=== PATIENT | male | born 1980 | race Hispanic/Latino ===

== ENCOUNTER 2018-10-04 06:32 | Emergency (ER) | payer SELFPAY ==
--- NOTE | 2018-10-04 08:02 | ER ---
Nurse's Notes [facility] Name: Sergei Walden Age: 38 yrs Sex: Male : 1980 Arrival Date: 10/04/2018 Time: 06:38 Bed 15 Private MD: Diagnosis: Acute upper respiratory infection, unspecified;Bronchitis, not specified as acute or chronic;Pneumonia due to other specified bacteria-left retrocardiac Presentation: 10/04 06:47 Presenting complaint: Patient states: I have had cough, fever and a soar throat since jb4 Thursday. My ears have also been hurting and I have had body aches chills and a runny nose on top of it. Transition of care: patient was not received from another setting of care. Onset of symptoms was October 01, 2018. Risk Assessment: Do you want to hurt yourself or someone else? Patient reports no desire to harm self or others. Initial Sepsis Screen: Does the patient meet any 2 criteria? No. Patient's initial sepsis screen is negative. Does the patient have a suspected source of infection? No. Patient's initial sepsis screen is negative. Care prior to arrival: None. 06:47 Method Of Arrival: Ambulatory jb4 06:47 Acuity: ARGENIS 4 jb4 Triage Assessment: 06:51 General: Appears in no apparent distress. uncomfortable, Behavior is calm, cooperative, jb4 appropriate for age. Pain: Complains of pain in right ear Pain does not radiate. Pain currently is 5 out of 10 on a pain scale. EENT: Nares are clear bilaterally Throat is reddened. Neuro: Level of Consciousness is awake, alert, obeys commands, Oriented to person, place, time, Appropriate for age. Cardiovascular: Heart tones S1 S2 present Patient's skin is warm and dry. Respiratory: Reports cough that is productive, Airway is patent Respiratory effort is even, unlabored, Respiratory pattern is regular, symmetrical, Breath sounds are clear in right upper lobe, left upper lobe, right middle lobe, left lower lobe, right lower lobe, left posterior upper lobe, right posterior upper lobe and right posterior middle lobe Breath sounds with rales in left posterior lower lobe and right posterior lower lobe. GI: Abdomen is round non-distended, Bowel sounds present X 4 quads. Reports lower abdominal pain. : No signs and/or symptoms were reported regarding the genitourinary system. Derm: Skin is intact, Skin is pink, warm \T\ dry. Musculoskeletal: Circulation, motion, and sensation intact. Historical: - Allergies: 06:51 No Known Allergies; jb4 - PMHx: 06:51 None; jb4 - PSHx: 06:51 Knee surgery; jb4 - Immunization history:: Adult Immunizations up to date, Flu vaccine is not up to date. - Social history:: Smoking status: Patient/guardian denies using tobacco, Patient/guardian denies using alcohol. - Ebola Screening: : No symptoms or risks identified at this time. Screenin:57 Abuse screen: Denies threats or abuse. Nutritional screening: No deficits noted. jb4 Tuberculosis screening: No symptoms or risk factors identified. Fall Risk None identified. Assessment: 06:57 General: see triage assessment.. Cardiovascular: Heart tones S1 S2 present Patient's jb4 skin is warm and dry. Respiratory: Airway is patent Respiratory effort is even, unlabored, Respiratory pattern is regular, symmetrical, Breath sounds are clear in right upper lobe, left upper lobe, right middle lobe, left lower lobe, right lower lobe, left posterior upper lobe, right posterior upper lobe and right posterior middle lobe Breath sounds with rales in left posterior lower lobe and right posterior lower lobe. 07:09 Reassessment: Patient and/or family updated on plan of care and expected duration. Pain hj level reassessed. Patient is alert, oriented x 3, equal unlabored respirations, skin warm/dry/pink. awaiting results and POC:. 08:09 Reassessment: wheeled to XRAY;. hj 08:32 Reassessment: still on breathing tx and awaiting XRAY result;. hj Vital Signs: 06:51 BP 139 / 88; Pulse 96; Resp 18; Temp 98.3(O); Pulse Ox 96% on R/A; Weight 79.38 kg (R); jb4 Height 5 ft. 2 in. (157.48 cm) (R); Pain 5/10; 07:10 BP 107 / 95; Pulse 88; Resp 18; Pulse Ox 95% on R/A; hj 08:34 BP 126 / 86; Pulse 98; Resp 18; Pulse Ox 100% on R/A; hj 09:02 BP 125 / 85; Pulse 97; Resp 18; Pulse Ox 100% on R/A; hj 06:51 Body Mass Index 32.01 (79.38 kg, 157.48 cm) jb4 ED Course: 06:38 Patient arrived in ED. keon 06:44 Timoteo Sorenson MD is Attending Physician. luh 06:47 John Munoz, RN is Primary Nurse. jb4 06:49 Triage completed. jb4 06:51 Arm band placed on left wrist. jb4 06:57 Patient has correct armband on for positive identification. Bed in low position. Call jb4 light in reach. Side rails up X 1. Pulse ox on. NIBP on. 08:14 X-ray completed. Patient tolerated procedure well. Patient moved back from radiology. jb2 08:15 Chest Pa And Lat (2 Views) XRAY In Process Unspecified. EDMS 09:01 No provider procedures requiring assistance completed. Patient did not have IV access hj during this emergency room visit. Administered Medications: 07:57 Drug: predniSONE 40 mg Route: PO; hj 08:16 Follow up: Response: No adverse reaction hj 07:57 Drug: Zithromax 500 mg Route: PO; hj 08:15 Follow up: Response: No adverse reaction hj 07:58 Drug: Albuterol - atroVENT (3:1) (2.5 mg - 0.5 mg) 3 ml Route: Nebulizer; hj 08:16 Follow up: Response: Wheezing diminished hj 08:09 Drug: Rocephin (cefTRIAXone) 1 grams Route: IM; Site: right deltoid; hj 08:16 Follow up: Response: No adverse reaction hj Outcome: 08:01 Discharge ordered by . luh 09:01 Discharged to home ambulatory. 09:01 Condition: stable 09:01 Discharge instructions given to patient, Instructed on discharge instructions, follow up and referral plans. medication usage, Demonstrated understanding of instructions, follow-up care, medications, Prescriptions given X 3. 09:02 Patient left the ED. Signatures: Dispatcher [employer] EDAZ Timoteo Sorenson MD MD cha Salyer, Edna es Buechter, Jesse jb2 Elliott Madsen, RN RN John Rosario, RN RN jb4
--- NOTE | 2018-10-04 08:02 | EDPHYS ---
Physician Documentation [facility] Name: Sergei Walden Age: 38 yrs Sex: Male : 1980 Arrival Date: 10/04/2018 Time: 06:38 Bed 15 Private MD: ED Physician Timoteo Sorenson HPI: 10/04 07:56 This 38 yrs old Male presents to ER via Ambulatory with complaints of Fever, luh Congestion, Ear Pain. 07:56 The patient reports fever, that was measured at 100 degrees Fahrenheit. Onset: The luh symptoms/episode began/occurred 2 day(s) ago. Modifying factors: there are no obvious modifying factors. Associated signs and symptoms: Pertinent positives: abdominal pain. Severity of symptoms: At their worst the symptoms were. The patient has not experienced similar symptoms in the past. Historical: - Allergies: 06:51 No Known Allergies; jb4 - PMHx: 06:51 None; jb4 - PSHx: 06:51 Knee surgery; jb4 - Immunization history:: Adult Immunizations up to date, Flu vaccine is not up to date. - Social history:: Smoking status: Patient/guardian denies using tobacco, Patient/guardian denies using alcohol. - Ebola Screening: : No symptoms or risks identified at this time. ROS: 07:56 Constitutional: Negative for fever, chills, and weight loss, Eyes: Negative for injury, luh pain, redness, and discharge, ENT: Negative for injury, pain, and discharge, Neck: Negative for injury, pain, and swelling, Cardiovascular: Negative for chest pain, palpitations, and edema, Abdomen/GI: Negative for abdominal pain, nausea, vomiting, diarrhea, and constipation, Back: Negative for injury and pain, : Negative for injury, bleeding, discharge, and swelling, MS/Extremity: Negative for injury and deformity, Skin: Negative for injury, rash, and discoloration, Neuro: Negative for headache, weakness, numbness, tingling, and seizure, Psych: Negative for depression, anxiety, suicide ideation, homicidal ideation, and hallucinations, Allergy/Immunology: Negative for hives, rash, and allergies, Endocrine: Negative for neck swelling, polydipsia, polyuria, polyphagia, and marked weight changes, Hematologic/Lymphatic: Negative for swollen nodes, abnormal bleeding, and unusual bruising. 07:56 Respiratory: Positive for cough, shortness of breath, at rest. wheezing, expiratory. Exam: 07:56 Constitutional: This is a well developed, well nourished patient who is awake, alert, luh and in no acute distress. Head/Face: Normocephalic, atraumatic. Eyes: Pupils equal round and reactive to light, extra-ocular motions intact. Lids and lashes normal. Conjunctiva and sclera are non-icteric and not injected. Cornea within normal limits. Periorbital areas with no swelling, redness, or edema. ENT: Nares patent. No nasal discharge, no septal abnormalities noted. Tympanic membranes are normal and external auditory canals are clear. Oropharynx with no redness, swelling, or masses, exudates, or evidence of obstruction, uvula midline. Mucous membranes moist. Neck: Trachea midline, no thyromegaly or masses palpated, and no cervical lymphadenopathy. Supple, full range of motion without nuchal rigidity, or vertebral point tenderness. No Meningismus. Chest/axilla: Normal chest wall appearance and motion. Nontender with no deformity. No lesions are appreciated. Cardiovascular: Regular rate and rhythm with a normal S1 and S2. No gallops, murmurs, or rubs. Normal PMI, no JVD. No pulse deficits. Abdomen/GI: Soft, non-tender, with normal bowel sounds. No distension or tympany. No guarding or rebound. No evidence of tenderness throughout. Back: No spinal tenderness. No costovertebral tenderness. Full range of motion. Male : Normal genitalia with no discharge or lesions. Skin: Warm, dry with normal turgor. Normal color with no rashes, no lesions, and no evidence of cellulitis. MS/ Extremity: Pulses equal, no cyanosis. Neurovascular intact. Full, normal range of motion. Neuro: Awake and alert, GCS 15, oriented to person, place, time, and situation. Cranial nerves II-XII grossly intact. Motor strength 5/5 in all extremities. Sensory grossly intact. Cerebellar exam normal. Normal gait. Psych: Awake, alert, with orientation to person, place and time. Behavior, mood, and affect are within normal limits. 07:56 Respiratory: Respirations: normal, Breath sounds: decreased breath sounds, rhonchi, wheezing: expiratory Vital Signs: 06:51 BP 139 / 88; Pulse 96; Resp 18; Temp 98.3(O); Pulse Ox 96% on R/A; Weight 79.38 kg (R); jb4 Height 5 ft. 2 in. (157.48 cm) (R); Pain 5/10; 07:10 BP 107 / 95; Pulse 88; Resp 18; Pulse Ox 95% on R/A; hj 08:34 BP 126 / 86; Pulse 98; Resp 18; Pulse Ox 100% on R/A; hj 09:02 BP 125 / 85; Pulse 97; Resp 18; Pulse Ox 100% on R/A; hj 06:51 Body Mass Index 32.01 (79.38 kg, 157.48 cm) jb4 MDM: 06:44 Patient medically screened. [facility] 08:00 Data reviewed: vital signs, nurses notes, lab test result(s), radiologic studies, plain luh films. 10/04 07:00 Order name: Flu; Complete Time: 08:51 [facility] 10/04 07:00 Order name: Strep; Complete Time: 08:51 [facility] 10/04 07:33 Order name: Throat Culture EDME 10/04 07:56 Order name: Chest Pa And Lat (2 Views) XRAY; Complete Time: 08:[address] [facility] Administered Medications: 07:57 Drug: predniSONE 40 mg Route: PO; hj 08:16 Follow up: Response: No adverse reaction hj 07:57 Drug: Zithromax 500 mg Route: PO; hj 08:15 Follow up: Response: No adverse reaction hj 07:58 Drug: Albuterol - atroVENT (3:1) (2.5 mg - 0.5 mg) 3 ml Route: Nebulizer; hj 08:16 Follow up: Response: Wheezing diminished hj 08:09 Drug: Rocephin (cefTRIAXone) 1 grams Route: IM; Site: right deltoid; hj 08:16 Follow up: Response: No adverse reaction Disposition: 10/04/18 08:01 Discharged to Home. Impression: Acute upper respiratory infection, unspecified, Bronchitis, not specified as acute or chronic, Pneumonia due to other specified bacteria - left retrocardiac. - Condition is Stable. - Discharge Instructions: Acute Bronchitis, Adult, Community-Acquired Pneumonia, Adult, Upper Respiratory Infection, Adult, Cool Mist Vaporizer, Acute Bronchitis, Clnk-[id number], Upper Respiratory Infection, Adult, Lcjy-wd-[id number], Cough, Adult, Kxvf-up-Kptt, Cough, Adult. - Prescriptions for Medrol (Dakota) 4 mg Oral Tablets, Dose Pack - take 1 tablet by ORAL route as directed - follow package instructions; 1 packet. Albuterol Sulfate 90 mcg/actuation - inhale 1-2 puff by INHALATION route every 4-6 hours; 1 Inhaler. Zithromax 500 mg Oral Tablet - take 1 tablet by ORAL route once daily for 5 days; 5 tablet. - Medication Reconciliation Form, Thank You Letter, Antibiotic Education, Prescription Opioid Use form. - Work release form (10/04/18 09:11). bd - Follow up: Private Physician; When: 2 - 3 days; Reason: Recheck today's complaints, Continuance of care, Re-evaluation by your physician. - Problem is new. - Symptoms have improved. Signatures: Dispatcher [employer] EDTimoteo Nunez MD MD cha Joaquin, Henry, RN RN hj Bryson, James, RN RN jbAmber Benitez Corrections: (The following items were deleted from the chart) 08:52 08:01 10/04/2018 08:01 Discharged to Home. Impression: Acute upper respiratory lhu infection, unspecified; Bronchitis, not specified as acute or chronic. Condition is Stable. Forms are Medication Reconciliation Form, Thank You Letter, Antibiotic Education, Prescription Opioid Use. Follow up: Private Physician; When: 2 - 3 days; Reason: Recheck today's complaints, Continuance of care, Re-evaluation by your physician. Problem is new. Symptoms have improved. [facility] 09:02 08:52 10/04/2018 08:01 Discharged to Home. Impression: Acute upper respiratory hj infection, unspecified; Bronchitis, not specified as acute or chronic; Pneumonia due to other specified bacteria - left retrocardiac. Condition is Stable. Discharge Instructions: Acute Bronchitis, Adult, Upper Respiratory Infection, Adult, Cool Mist Vaporizer, Acute Bronchitis, [id number], Upper Respiratory Infection, Adult, Xbiw-sm-Eayq, Cough, Adult, Hdmi-yv-Menm, Cough, Adult. Prescriptions for Medrol (Dakota) 4 mg Oral Tablets, Dose Pack - take 1 tablet by ORAL route as directed - follow package instructions; 1 packet, Albuterol Sulfate 90 mcg/actuation - inhale 1-2 puff by INHALATION route every 4-6 hours; 1 Inhaler, Zithromax 500 mg Oral Tablet - take 1 tablet by ORAL route once daily for 5 days; 5 tablet. and Forms are Medication Reconciliation Form, Thank You Letter, Antibiotic Education, Prescription Opioid Use. Follow up: Private Physician; When: 2 - 3 days; Reason: Recheck today's complaints, Continuance of care, Re-evaluation by your physician. Problem is new. Symptoms have improved. luh
[2018-10-04] MEDS ORDERED: AZITHROMYCIN 250 MG TAB ONE (08:08)
[2018-10-04] MEDS ORDERED: LIDOCAINE 2% MPF 5 ML VIAL ONE (08:08)
[2018-10-04] MEDS ORDERED: ALBUTEROL 2.5 MG/3 ML NEB SOL ONE (08:09)
[2018-10-04] MEDS ORDERED: predniSONE 20 MG TAB ONE (08:09)
[2018-10-04] MEDS ORDERED: CEFTRIAXONE 1000 MG/VIAL ONE (08:09)
[2018-10-04] MEDS ORDERED: IPRATROPIUM BROM 0.5MG/2.5ML ONE (08:09)
--- NOTE | 2018-10-04 08:47 | RAD REPORT ---
EXAM DESCRIPTION: RAD - Chest Pa And Lat (2 Views) - 10/04/2018 8:16 am CLINICAL HISTORY: COUGH Chest pain. COMPARISON: No comparisons FINDINGS: Increased left retrocardiac lung opacity is present, suspicious for developing pneumonia. The lungs are otherwise clear. The heart is normal in size. No displaced fractures. IMPRESSION: Left retrocardiac pneumonia.
== END 2018-10-04 09:02 | disposition home or self-care (01) ==
LOC: ER 06:32
DX: J06.9 Acute upper respiratory infection, unspecified (principal); J40 Bronchitis, not specified as acute or chronic; J15.8 Pneumonia due to other specified bacteria
CPT/HCPCS: 71046; 87070; 87081; 87804; 94640; 96372; 99284; J7512

== ENCOUNTER 2018-10-11 14:46 | Emergency (ER) | payer SELFPAY ==
[2018-10-11] MEDS ORDERED: MECLIZINE HCL 12.5 MG TAB ONE (15:07)
[2018-10-11] MEDS ORDERED: NA CHLORIDE 0.9% 0 ML ONE (15:08)
[2018-10-11] MEDS ORDERED: NA CHLORIDE 0.9% 1,000 ML ONE ×2 (15:09)
--- NOTE | 2018-10-11 15:14 | RAD REPORT ---
EXAM DESCRIPTION: CT - Head Brain Wo Cont - 10/11/2018 3:03 pm CLINICAL HISTORY: Weakness, dizziness, syncope COMPARISON: None. TECHNIQUE: Axial 5 mm thick images of the head were obtained without IV contrast. All CT scans are performed using dose optimization technique as appropriate and may include automated exposure control or mA/KV adjustment according to patient size. FINDINGS: No intracranial hemorrhage, mass, edema or shift of mid-line structures. No acute infarcti on changes seen. No abnormal extra-axial fluid collections. Ventricles are normal. Mastoid air cells and visualized portions of the paranasal sinuses are clear. No acute bony findings. IMPRESSION: Negative non-contrast CT head examination.
--- NOTE | 2018-10-11 15:37 | RAD REPORT ---
EXAM DESCRIPTION: RAD - Chest Single View - 10/11/2018 3:14 pm CLINICAL HISTORY: Cough, weakness, dizziness COMPARISON: October 04 TECHNIQUE: AP portable chest image was obtained 1500 hours . FINDINGS: Lung volumes are low accentuating lung markings. Retrocardiac left base opacification is s till present. Peribronchial thickening is seen. Heart and vasculature are normal. No measurable pleur al effusion and no pneumothorax. No acute bony abnormality seen. No acute aortic findings suspected. IMPRESSION: Perihilar markings are increased in prominence typically seen with viral infiltrate. Retrocardiac left base opacification, suspicious for pneumonia, is still present.
[2018-10-11 15:42] LABS: Absolute Lymphocytes (CBC) 2.2 K/uL (0.7-4.9); Absolute Monocytes 0.9 K/uL (0.1-1.3); Absolute Neutrophil 5.9 K/uL (1.8-8.0); Basophils % 1.5 % (0-1.3); Eosinophils % 2.6 % (0-4.4); Hematocrit 43.4 % (39.6-49.0); Lymphocytes % 23.8 % (15.3-44.8); MCH 29.2 pg (27.0-35.0); MCV 85.5 fL (80-100); MPV 7.2 fL (7.6-11.3); Monocytes % 9.2 % (3.3-12.3); RBC Red Blood Cell Count 5.07 M/uL (4.33-5.43)
[2018-10-11 15:44] LABS: Protime INR 1.08
--- NOTE | 2018-10-11 16:03 | EKG ---
Test Date: 2018-10-11 Test Time: 15:18:57 Lumber Scaler: MIRIAM MEASUREMENT RESULTS: Intervals: Rate: 76 IA: 200 QRSD: 106 QT: 370 QTc: 416 Saxon: P: 55 IA: 200 QRS: 74 T: 21 INTERPRETIVE STATEMENTS: Normal sinus rhythm Nonspecific ST and T wave abnormality Abnormal ECG No previous ECG available for comparison Electronically Signed On 10-11-18 16:02:25 FILM AND VIDEO GRAPHICS DESIGNER by Tahir Buckner
[2018-10-11 16:10] LABS: ALT/SGPT 44 U/L (12-78); AST/SGOT 14 U/L (15-37); Albumin 3.3 g/dL (3.4-5.0); Alkaline Phosphatase 59 U/L (45-117); BUN Blood Urea Nitrogen 15 mg/dL (7-18); Bicarbonate 26 mmol/L (21-32); Bilirubin Direct < 0.1 mg/dL (0-0.2); Bilirubin Total 0.3 mg/dL (0.2-1.0); Glucose Level 91 mg/dL (74-106); Magnesium 2.2 mg/dL (1.8-2.4); Potassium 3.4 mmol/L (3.5-5.1); Protein, Total 6.9 g/dL (6.4-8.2); Sodium Level 140 mmol/L (136-145); Troponin (Emerg Dept Use Only) < 0.02 ng/mL (0.0-0.045)
[2018-10-11 16:11] LABS: NT PRO-BNP < 5 pg/mL (<125)
[2018-10-11 16:30] LABS: Urine Blood NEGATIVE (NEG); Urine Glucose NEGATIVE (NEG); Urine Protein NEGATIVE (NEG); Urine pH 7.5 (5.0-7.0)
--- NOTE | 2018-10-11 16:50 | RAD REPORT ---
EXAM DESCRIPTION: CT - Thorax W/ Con - 10/11/2018 4:37 pm CLINICAL HISTORY: Chest pain COMPARISON: Chest exam same date TECHNIQUE: Dynamically enhanced 5 mm thick images of the chest were obtained during administration o f 100 mL non-ionic IV contrast. All CT scans are performed using dose optimization technique as appropriate and may include automated exposure control or mA/KV adjustment according to patient size. FINDINGS: Lung parenchyma is better imaged on this study compared to the recent chest imaging. There is no focal infiltrate or consolidation. Peribronchial structures are mildly prominent and a viral i nfiltrative process is still possible. There is no endobronchial lesion. No pleural thickening or pleural effusion. No pneumothorax. No chest wall mass or abnormal axillary lymphadenopathy. No abnormal mediastinal or hilar mass or lymphadenopathy seen. No rib lesion or acute bone findings seen. Limited upper abdomen imaging shows fatty infiltration of the liver. IMPRESSION: Minimal bronchial wall thickening is evident. Viral infiltrate is still possible. There is no focal lung parenchymal process to indicate bacterial pneumonia. Fatty infiltration of the liver.
--- NOTE | 2018-10-11 16:58 | EDPHYS ---
Physician Documentation [facility] Name: Sergei Walden Age: 38 yrs Sex: Male : 1980 Arrival Date: 10/11/2018 Time: 14:47 Bed 14 Private MD: ED Physician Timoteo Sorenson HPI: 10/11 15:29 This 38 yrs old Male presents to ER via EMS with complaints of Nausea, luh Dizziness. 15:29 The patient presents to the emergency department with nausea, that is mild. Onset: The luh symptoms/episode began/occurred just prior to arrival. Possible causes: unknown. The symptoms are aggravated by movement. Associated signs and symptoms: The patient has no apparent associated signs or symptoms. Severity of symptoms: At their worst the symptoms were mild in the emergency department the symptoms are unchanged. The patient has not experienced similar symptoms in the past. Historical: - Allergies: 17:55 No Known Allergies; tw2 - Home Meds: 17:55 None [Active]; tw2 - PSHx: 17:55 Knee surgery; tw2 - Immunization history:: Adult Immunizations. - Family history:: not pertinent. - Social history:: Smoking status: . - Ebola Screening: : Patient denies travel to an Ebola-affected area in the 21 days before illness onset. ROS: 15:29 Constitutional: Negative for fever, chills, and weight loss, Eyes: Negative for injury, luh pain, redness, and discharge, ENT: Negative for injury, pain, and discharge, Neck: Negative for injury, pain, and swelling, Cardiovascular: Negative for chest pain, palpitations, and edema, Respiratory: Negative for shortness of breath, cough, wheezing, and pleuritic chest pain, Back: Negative for injury and pain, : Negative for injury, bleeding, discharge, and swelling, MS/Extremity: Negative for injury and deformity, Skin: Negative for injury, rash, and discoloration, Psych: Negative for depression, anxiety, suicide ideation, homicidal ideation, and hallucinations, Allergy/Immunology: Negative for hives, rash, and allergies, Endocrine: Negative for neck swelling, polydipsia, polyuria, polyphagia, and marked weight changes, Hematologic/Lymphatic: Negative for swollen nodes, abnormal bleeding, and unusual bruising. 15:29 Abdomen/GI: Positive for abdominal pain, nausea. Exam: 15:29 Constitutional: This is a well developed, well nourished patient who is awake, alert, luh and in no acute distress. Head/Face: Normocephalic, atraumatic. Eyes: Pupils equal round and reactive to light, extra-ocular motions intact. Lids and lashes normal. Conjunctiva and sclera are non-icteric and not injected. Cornea within normal limits. Periorbital areas with no swelling, redness, or edema. ENT: Nares patent. No nasal discharge, no septal abnormalities noted. Tympanic membranes are normal and external auditory canals are clear. Oropharynx with no redness, swelling, or masses, exudates, or evidence of obstruction, uvula midline. Mucous membranes moist. Neck: Trachea midline, no thyromegaly or masses palpated, and no cervical lymphadenopathy. Supple, full range of motion without nuchal rigidity, or vertebral point tenderness. No Meningismus. Chest/axilla: Normal chest wall appearance and motion. Nontender with no deformity. No lesions are appreciated. Cardiovascular: Regular rate and rhythm with a normal S1 and S2. No gallops, murmurs, or rubs. Normal PMI, no JVD. No pulse deficits. Respiratory: Lungs have equal breath sounds bilaterally, clear to auscultation and percussion. No rales, rhonchi or wheezes noted. No increased work of breathing, no retractions or nasal flaring. Abdomen/GI: Soft, non-tender, with normal bowel sounds. No distension or tympany. No guarding or rebound. No evidence of tenderness throughout. Back: No spinal tenderness. No costovertebral tenderness. Full range of motion. Male : Normal genitalia with no discharge or lesions. Skin: Warm, dry with normal turgor. Normal color with no rashes, no lesions, and no evidence of cellulitis. MS/ Extremity: Pulses equal, no cyanosis. Neurovascular intact. Full, normal range of motion. Neuro: Awake and alert, GCS 15, oriented to person, place, time, and situation. Cranial nerves II-XII grossly intact. Motor strength 5/5 in all extremities. Sensory grossly intact. Cerebellar exam normal. Normal gait. Psych: Awake, alert, with orientation to person, place and time. Behavior, mood, and affect are within normal limits. Vital Signs: 14:51 BP 119 / 88; Pulse 78; Resp 18; Temp 97.8(TE); Pulse Ox 100% on R/A; Pain 3/10; tw2 15:30 BP 122 / 75; Pulse 70; Resp 17; Pulse Ox 97% on R/A; tw2 16:00 BP 134 / 97; Pulse 72; Resp 17; Pulse Ox 97% on R/A; tw2 17:25 BP 126 / 88; Pulse 72; Resp 17; Pulse Ox 97% on R/A; tw2 18:39 BP 115 / 52; Pulse 64; Resp 17; Pulse Ox 95% on R/A; tw2 MDM: 14:50 Patient medically screened. [facility] 15:33 Data reviewed: vital signs, nurses notes, lab test result(s), EKG, radiologic studies, [facility] CT scan, plain films. 10/11 14:51 Order name: Basic Metabolic Panel; Complete Time: 16:41 [facility] 10/11 14:51 Order name: CBC with Diff; Complete Time: 16:05 [facility] 10/11 14:51 Order name: LFT's; Complete Time: 16:41 [facility] 10/11 14:51 Order name: Magnesium; Complete Time: 16:41 [facility] 10/11 14:51 Order name: NT PRO-BNP; Complete Time: 16:41 [facility] 10/11 14:51 Order name: PT-INR; Complete Time: 16:05 [facility] 10/11 14:51 Order name: Troponin (emerg Dept Use Only); Complete Time: 16:41 [facility] 10/11 14:51 Order name: XRAY Chest (1 view); Complete Time: 16:05 [facility] 10/11 14:51 Order name: CT Head Brain wo Cont; Complete Time: 16:05 [facility] 10/11 14:51 Order name: Urine Culture [facility] 10/11 16:06 Order name: Blood Culture Adult (2) [facility] 10/11 16:06 Order name: CT Chest W/ Con; Complete Time: 16:56 [facility] 10/11 16:18 Order name: Urine Dipstick--Ancillary (enter results); Complete Time: 16:41 10/11 16:41 Order name: Influenza Screen (a \T\ B) [facility] 10/11 14:51 Order name: EKG; Complete Time: 14:52 [facility] 10/11 14:51 Order name: Cardiac monitoring; Complete Time: 14:55 [facility] 10/11 14:51 Order name: EKG - Nurse/Tech; Complete Time: 15:44 [facility] 10/11 14:51 Order name: IV Saline Lock; Complete Time: 14:55 [facility] 10/11 14:51 Order name: Labs collected and sent; Complete Time: 14:55 [facility] 10/11 14:51 Order name: O2 Per Protocol; Complete Time: 14:56 [facility] 10/11 14:51 Order name: O2 Sat Monitoring; Complete Time: 14:56 [facility] 10/11 14:51 Order name: Urine Dipstick-Ancillary (obtain specimen); Complete Time: 17:50 [facility] 10/11 17:11 Order name: INCENTIVE SPIROMETRY dm5 Administered Medications: 14:53 Not Given (ems just medicated): Zofran 4 mg IVP once; over 2 minutes tw2 15:30 Drug: NS 0.9% 1000 ml Route: IV; Rate: 1 bolus; Site: right antecubital; tw2 17:11 Follow up: Response: No adverse reaction; IV Status: Completed infusion; IV Intake: dm5 1000ml 15:30 Drug: Meclizine 50 mg Route: PO; tw2 15:44 Follow up: Response: No adverse reaction tw2 17:10 Drug: levofloxacin 750 mg Volume: 150 ml; Route: IVPB; Infused Over: 90 mins; Site: dm5 right hand; 18:38 Follow up: Response: No adverse reaction; IV Status: Completed infusion tw2 17:10 Drug: Potassium Effervescent Tablet 25 mEq Route: PO; dm5 17:11 Follow up: Response: No adverse reaction dm5 Disposition: 10/11/18 16:57 Discharged to Home. Impression: Dizziness and giddiness, Pneumonia due to other specified bacteria, Hypokalemia. - Condition is Stable. - Discharge Instructions: Potassium Content of Foods, Dizziness, Community-Acquired Pneumonia, Adult, Vertigo, Community-Acquired Pneumonia, Adult, Nwlq-[id number], Vertigo, Mtky-ac-Ggub, Aspirin and Your Heart, Hypokalemia, Dizziness, Gitw-bd-Bsvt. - Prescriptions for Meclizine 25 mg Oral Tablet - take 1 tablet by ORAL route every 8 hours As needed; 30 tablet. Levaquin 750 mg Oral Tablet - take 1 tablet by ORAL route once daily for 7 days; 7 tablet. - Medication Reconciliation Form, Thank You Letter, Antibiotic Education, Prescription Opioid Use, Work release form form. - Follow up: Private Physician; When: 2 - 3 days; Reason: Recheck today's complaints, Continuance of care, Re-evaluation by your physician. - Problem is new. - Symptoms have improved. Signatures: Dispatcher [employer] [facility] Zena Melchor, RN RN dm5 Timoteo Sorenson MD MD cha Wise, Tara RN RN tw2 Corrections: (The following items were deleted from the chart) 16:59 16:57 [id number] ordered. [facility] 18:40 16:57 10/11/2018 16:57 Discharged to Home. Impression: Dizziness and giddiness; tw2 Pneumonia due to other specified bacteria; Hypokalemia. Condition is Stable. Discharge Instructions: Dizziness, Vertigo, Vertigo, Unpy-lx-Teow, Dizziness, Vohf-tx-Asyu, Community-Acquired Pneumonia, Adult, Community-Acquired Pneumonia, Adult, Bwag-nd-Tkyi, Aspirin and Your Heart, Potassium Content of Foods, Hypokalemia. Prescriptions for Meclizine 25 mg Oral Tablet - take 1 tablet by ORAL route every 8 hours As needed; 30 tablet, Levaquin 750 mg Oral Tablet - take 1 tablet by ORAL route once daily for 7 days; 7 tablet. and Forms are Medication Reconciliation Form, Thank You Letter, Antibiotic Education, Prescription Opioid Use. Follow up: Private Physician; When: 2 - 3 days; Reason: Recheck today's complaints, Continuance of care, Re-evaluation by your physician. Problem is new. Symptoms have improved. luh
--- NOTE | 2018-10-11 16:58 | ER ---
Nurse's Notes [facility] Name: Sergei Walden Age: 38 yrs Sex: Male : 1980 Arrival Date: 10/11/2018 Time: 14:47 Bed 14 Private MD: Diagnosis: Dizziness and giddiness;Pneumonia due to other specified bacteria;Hypokalemia Presentation: 10/11 14:44 Presenting complaint: EMS states: pt was at work, started feeling lightheaded and dizzy tw2 with a headache, then started feeling nauseous, was treated last week for bronchitis but completed the dose pack and zpack, we gave 4mg IV Zofran and started 1L ns bolus. Transition of care: patient was not received from another setting of care. Onset of symptoms was October 11, 2018. Risk Assessment: Do you want to hurt yourself or someone else? Patient reports no desire to harm self or others. Initial Sepsis Screen: Does the patient meet any 2 criteria? No. Patient's initial sepsis screen is negative. Does the patient have a suspected source of infection? No. Patient's initial sepsis screen is negative. Care prior to arrival: Medication(s) given: Normal saline infusion, 200 mg NS infused so far at this time. zofran 4 mg, IV initiated. 20 GA, in the right wrist, Glucose check: 162. 14:44 Method Of Arrival: EMS: [facility] tw2 14:44 Acuity: ARGENIS 3 tw2 Historical: - Allergies: 17:55 No Known Allergies; tw2 - Home Meds: 17:55 None [Active]; tw2 - PSHx: 17:55 Knee surgery; tw2 - Immunization history:: Adult Immunizations. - Family history:: not pertinent. - Social history:: Smoking status: . - Ebola Screening: : Patient denies travel to an Ebola-affected area in the 21 days before illness onset. Screenin:55 Abuse screen: Denies threats or abuse. Nutritional screening: No deficits noted. tw2 Tuberculosis screening: No symptoms or risk factors identified. Fall Risk None identified. Assessment: 15:00 General: Appears in no apparent distress. Behavior is calm, cooperative, appropriate tw2 for age. Pain: Complains of pain in abdomen Pain currently is 3 out of 10 on a pain scale. Neuro: Level of Consciousness is awake, alert, obeys commands, Oriented to person, place, time, situation. Neuro: Reports dizziness. Cardiovascular: Denies chest pain, shortness of breath, Heart tones S1 S2 Patient's skin is warm and dry. Respiratory: Airway is patent Respiratory effort is even, unlabored, Respiratory pattern is regular, symmetrical, Breath sounds are clear bilaterally. Respiratory: Reports cough that is. GI: Abdomen is flat, Bowel sounds present X 4 quads. Reports nausea. : No signs and/or symptoms were reported regarding the genitourinary system. EENT: Reports nasal congestion. Derm: No signs and/or symptoms reported regarding the dermatologic system. Musculoskeletal: Range of motion: intact in all extremities. 17:26 Reassessment: Patient appears in no apparent distress at this time. No changes from tw2 previously documented assessment. Patient and/or family updated on plan of care and expected duration. Pain level reassessed. Patient is alert, oriented x 3, equal unlabored respirations, skin warm/dry/pink. 18:39 Reassessment: Patient appears in no apparent distress at this time. No changes from tw2 previously documented assessment. Patient and/or family updated on plan of care and expected duration. Pain level reassessed. Patient is alert, oriented x 3, equal unlabored respirations, skin warm/dry/pink. Vital Signs: 14:51 BP 119 / 88; Pulse 78; Resp 18; Temp 97.8(TE); Pulse Ox 100% on R/A; Pain 3/10; tw2 15:30 BP 122 / 75; Pulse 70; Resp 17; Pulse Ox 97% on R/A; tw2 16:00 BP 134 / 97; Pulse 72; Resp 17; Pulse Ox 97% on R/A; tw2 17:25 BP 126 / 88; Pulse 72; Resp 17; Pulse Ox 97% on R/A; tw2 18:39 BP 115 / 52; Pulse 64; Resp 17; Pulse Ox 95% on R/A; tw2 ED Course: 14:47 Patient arrived in ED. tw2 14:50 Timoteo Sorenson MD is Attending Physician. [facility] 14:51 Triage completed. tw2 14:51 Arm band placed on. tw2 14:52 Verito Woods, MILLIE is Primary Nurse. tw2 14:52 Bed in low position. Call light in reach. Side rails up X2. Pulse ox on. NIBP on. tw2 15:[address] via stretcher. vm2 15:02 CT completed. Patient tolerated procedure well. Patient moved back from CT. vm2 15:02 CT Head Brain wo Cont In Process Unspecified. EDMS 15:12 X-ray completed. Patient tolerated procedure well. Patient moved back from radiology. ls3 15:14 XRAY Chest (1 view) In Process Unspecified. EDMS 15:56 EKG done, by orthotics prosthetics technician. reviewed by Timoteo Sorenson MD. sm3 16:37 CT Chest W/ Con In Process Unspecified. EDMS 16:58 Influenza Screen (a \T\ B) Sent. dm5 17:11 Blood Culture Adult (2) Sent. dm5 17:12 Awaiting: completion of IV abx prior to discharge. dm5 18:39 No provider procedures requiring assistance completed. IV discontinued, intact, tw2 bleeding controlled, No redness/swelling at site. Pressure dressing applied. Administered Medications: 14:53 Not Given (ems just medicated): Zofran 4 mg IVP once; over 2 minutes tw2 15:30 Drug: NS 0.9% 1000 ml Route: IV; Rate: 1 bolus; Site: right antecubital; tw2 17:11 Follow up: Response: No adverse reaction; IV Status: Completed infusion; IV Intake: dm5 1000ml 15:30 Drug: Meclizine 50 mg Route: PO; tw2 15:44 Follow up: Response: No adverse reaction tw2 17:10 Drug: levofloxacin 750 mg Volume: 150 ml; Route: IVPB; Infused Over: 90 mins; Site: dm5 right hand; 18:38 Follow up: Response: No adverse reaction; IV Status: Completed infusion tw2 17:10 Drug: Potassium Effervescent Tablet 25 mEq Route: PO; dm5 17:11 Follow up: Response: No adverse reaction dm5 Intake: 17:11 IV: 1000ml; Total: 1000ml. dm5 Outcome: 16:57 Discharge ordered by . luh 18:39 Discharged to home ambulatory, with family. tw2 18:39 Condition: stable 18:39 Discharge instructions given to patient, family, Instructed on discharge instructions, follow up and referral plans. medication usage, Demonstrated understanding of instructions, follow-up care, medications, Prescriptions given X 2. 18:40 Patient left the ED. tw2 Signatures: Dispatcher [employer] Zena Bolton RN RN dm5 Timoteo Sorenson MD MD cha Wise, Tara, RN RN tw2 Sole De Santiago 2 Ludy Almonte 3 Aretha Clark 3 Anton Velazquez 3 Corrections: (The following items were deleted from the chart) 15:54 15:47 EKG done, by orthotics prosthetics technician. reviewed by Timoteo Sorenson MD 3 3
[2018-10-11] MEDS ORDERED: POTASSIUM 25 MEQ EFFERV TAB ONE (17:08)
[2018-10-11] MEDS ORDERED: Levofloxacin 750mg IV 750 MG/150 ML BAG IV ONE (17:08)
== END 2018-10-11 18:40 | disposition home or self-care (01) ==
LOC: ER 14:46
DX: J15.8 Pneumonia due to other specified bacteria (principal); E87.6 Hypokalemia
CPT/HCPCS: 36415; 70450; 71045; 71260; 80048; 80076; 81003; 83735; 83880; 84484; 85025; 85610; 87040; 87077; 87086; 87088; 87186; 87205; 87804; 93005; 96361; 96365; 99285; J7030; Q9967

== ENCOUNTER 2018-10-14 16:57 | Emergency (ER) | payer SELFPAY ==
[2018-10-14 18:54] LABS: Absolute Lymphocytes (CBC) 2.3 K/uL (0.7-4.9); Absolute Monocytes 0.6 K/uL (0.1-1.3); Absolute Neutrophil 6.9 K/uL (1.8-8.0); Basophils % 1.3 % (0-1.3); Eosinophils % 1.5 % (0-4.4); Hematocrit 45.3 % (39.6-49.0); Lymphocytes % 23.1 % (15.3-44.8); MCH 29.2 pg (27.0-35.0); MCV 86.3 fL (80-100); MPV 7.3 fL (7.6-11.3); Monocytes % 6.2 % (3.3-12.3); RBC Red Blood Cell Count 5.24 M/uL (4.33-5.43)
[2018-10-14 18:59] LABS: Urine Blood TRACE (NEG); Urine Glucose NEGATIVE (NEG); Urine Protein NEGATIVE (NEG)
[2018-10-14 19:15] LABS: Urine Bacteria <20 /HPF (NONE SEEN)
[2018-10-14 19:16] LABS: Urine Culture Reflex Order NOT NEEDED
[2018-10-14 19:22] LABS: ALT/SGPT 46 U/L (12-78); AST/SGOT 14 U/L (15-37); Albumin 3.8 g/dL (3.4-5.0); Alkaline Phosphatase 63 U/L (45-117); BUN Blood Urea Nitrogen 18 mg/dL (7-18); Bicarbonate 27 mmol/L (21-32); Bilirubin Direct 0.1 mg/dL (0-0.2); Bilirubin Total 0.4 mg/dL (0.2-1.0); Glucose Level 94 mg/dL (74-106); Lipase 139 U/L (73-393); Potassium 3.5 mmol/L (3.5-5.1); Sodium Level 138 mmol/L (136-145)
[2018-10-14] MEDS ORDERED: DIPHENHYDRAMINE 50 MG/ML VIAL ONE (19:33)
[2018-10-14] MEDS ORDERED: METOCLOPRAMIDE 10 MG/2mL INJ ONE (19:33)
--- NOTE | 2018-10-14 20:40 | RAD REPORT ---
EXAM DESCRIPTION: CT - Abdomen Pelvis W Contrast - 10/14/2018 8:12 pm CLINICAL HISTORY: Abdominal pain/upper abdominal pain COMPARISON: none. TECHNIQUE: Computed axial tomography of the abdomen pelvis was obtained. 100 cc Isovue-300 was admin istered intravenously. Oral contrast was not requested which limits evaluation of bowel. All CT scans are performed using dose optimization technique as appropriate and may include automated exposure control or mA/KV adjustment according to patient size. FINDINGS: Fatty liver Spleen, pancreas, adrenal and kidneys appear unremarkable. There is no evidence of diverticulitis. The appendix is normal Small inguinal hernias contain fat. Small umbilical hernia IMPRESSION: No acute abnormality is displayed.
--- NOTE | 2018-10-14 20:44 | EDPHYS ---
Physician Documentation [facility] Name: Sergei Walden Age: 38 yrs Sex: Male : 1980 Arrival Date: 10/14/2018 Time: 17:00 Bed 20 Private MD: None, None ED Physician Henry Paul HPI: 10/14 19:33 This 38 yrs old Male presents to ER via Ambulatory with complaints of jr8 Abdominal Pain. 19:33 The patient presents with abdominal pain in the upper abdomen. Onset: The jr8 symptoms/episode began/occurred gradually, 1 week(s) ago. The symptoms do not radiate. Associated signs and symptoms: Pertinent positives: nausea and vomiting. The symptoms are described as burning. Modifying factors: The symptoms are alleviated by nothing, the symptoms are aggravated by food. Severity of pain: At its worst the pain was moderate in the emergency department the pain is unchanged. The patient has not experienced similar symptoms in the past. The patient has been recently seen by a physician: with different complaint(s). Historical: - Allergies: 17:39 No Known Allergies; aj - Home Meds: 17:39 Nexium 20 mg Oral cpDR 1 cap once daily [Active]; aj - PMHx: 17:39 None; aj - PSHx: 17:39 Knee surgery; aj - Immunization history:: Adult Immunizations up to date. - Social history:: Smoking status: Patient/guardian denies using tobacco. - Ebola Screening: : Patient negative for fever greater than or equal to 101.5 degrees Fahrenheit, and additional compatible Ebola Virus Disease symptoms Patient denies exposure to infectious person Patient denies travel to an Ebola-affected area in the 21 days before illness onset No symptoms or risks identified at this time. ROS: 19:33 Eyes: Negative for injury, pain, redness, and discharge, ENT: Negative for injury, jr8 pain, and discharge, Neck: Negative for injury, pain, and swelling, Cardiovascular: Negative for chest pain, palpitations, and edema, Respiratory: Negative for shortness of breath, cough, wheezing, and pleuritic chest pain, Back: Negative for injury and pain, MS/Extremity: Negative for injury and deformity, Skin: Negative for injury, rash, and discoloration, Neuro: Negative for headache, weakness, numbness, tingling, and seizure. 19:33 Abdomen/GI: Positive for abdominal pain, nausea and vomiting, Negative for diarrhea, constipation, abdominal cramps, abdominal distension, anorexia, dysphagia, hematemesis, black/tarry stool, rectal pain, rectal bleeding, bowel incontinence, flatulence. Exam: 19:33 Eyes: Pupils equal round and reactive to light, extra-ocular motions intact. Lids and jr8 lashes normal. Conjunctiva and sclera are non-icteric and not injected. Cornea within normal limits. Periorbital areas with no swelling, redness, or edema. ENT: Nares patent. No nasal discharge, no septal abnormalities noted. Tympanic membranes are normal and external auditory canals are clear. Oropharynx with no redness, swelling, or masses, exudates, or evidence of obstruction, uvula midline. Mucous membranes moist. Neck: Trachea midline, no thyromegaly or masses palpated, and no cervical lymphadenopathy. Supple, full range of motion without nuchal rigidity, or vertebral point tenderness. No Meningismus. Cardiovascular: Regular rate and rhythm with a normal S1 and S2. No gallops, murmurs, or rubs. Normal PMI, no JVD. No pulse deficits. Respiratory: Lungs have equal breath sounds bilaterally, clear to auscultation and percussion. No rales, rhonchi or wheezes noted. No increased work of breathing, no retractions or nasal flaring. Back: No spinal tenderness. No costovertebral tenderness. Full range of motion. Skin: Warm, dry with normal turgor. Normal color with no rashes, no lesions, and no evidence of cellulitis. MS/ Extremity: Pulses equal, no cyanosis. Neurovascular intact. Full, normal range of motion. Neuro: Awake and alert, GCS 15, oriented to person, place, time, and situation. Cranial nerves II-XII grossly intact. Motor strength 5/5 in all extremities. Sensory grossly intact. Cerebellar exam normal. Normal gait. 19:33 Abdomen/GI: Inspection: abdomen appears normal, Bowel sounds: active, all quadrants, Palpation: soft, in all quadrants, mild abdominal tenderness, in the epigastric area and left upper quadrant and mid abdomen , mass, is not appreciated, rebound tenderness, is not appreciated, voluntary guarding, is not appreciated, involuntary guarding, is not appreciated, no appreciated organomegaly, Indicators: McBurney's point is not tender, Houston's sign is negative, Rovsing's sign is negative, Liver: tenderness, is not appreciated. Vital Signs: 17:39 BP 126 / 83; Pulse 73; Resp 17; Temp 98.2; Pulse Ox 99% on R/A; Weight 79.38 kg; Height aj 5 ft. 2 in. (157.48 cm); 19:56 BP 118 / 87; Pulse 62; Resp 16 S; Pulse Ox 98% on R/A; jd3 21:14 BP 120 / 70; Pulse 61; Resp 18 S; Pulse Ox 96% on R/A; jd3 17:39 Body Mass Index 32.01 (79.38 kg, 157.48 cm) aj MDM: 18:24 Patient medically screened. jr8 20:43 Data reviewed: vital signs, nurses notes, lab test result(s), radiologic studies, CT jr8 scan, and as a result, I will discharge patient. Data interpreted: Pulse oximetry: on room air is 98 %. Interpretation: normal. Counseling: I had a detailed discussion with the patient and/or guardian regarding: the historical points, exam findings, and any diagnostic results supporting the discharge/admit diagnosis, lab results, radiology results, the need for outpatient follow up, a stage builder, to return to the emergency department if symptoms worsen or persist or if there are any questions or concerns that arise at home. 10/14 17:40 Order name: Urine Microscopic Only; Complete Time: 19:26 snw 10/14 18:24 Order name: Basic Metabolic Panel; Complete Time: 19:26 10/14 18:24 Order name: CBC with Diff; Complete Time: 18:58 10/14 18:24 Order name: Creatinine for Radiology; Complete Time: 19:26 10/14 18:24 Order name: Hepatic Function; Complete Time: 19:26 [facility] 10/14 18:24 Order name: Lipase; Complete Time: 19:26 [facility] 10/14 17:40 Order name: Urine Dipstick-Ancillary (obtain specimen); Complete Time: 18:31 snw 10/14 18:24 Order name: IV Saline Lock; Complete Time: 18:47 10/14 18:24 Order name: Labs collected and sent; Complete Time: 18:47 [facility] 10/14 18:41 Order name: Urine Dipstick--Ancillary (enter results); Complete Time: 19:04 ms 10/14 19:26 Order name: CT Abd/Pelvis - W/Contrast; Complete Time: 20:42 jr8 Administered Medications: 19:31 Drug: Reglan 10 mg Route: IVP; Site: right antecubital; jd3 21:19 Follow up: Response: No adverse reaction jd3 19:31 Drug: Benadryl 12.5 mg Route: IVP; Site: right antecubital; jd3 21:19 Follow up: Response: No adverse reaction jd3 Disposition: 10/15 07:26 Co-signature as Attending Physician, Henry Paul MD I agree with the assessment and kdr plan of care. Disposition: 10/14/18 20:43 Discharged to Home. Impression: Abdominal and pelvic pain. - Condition is Stable. - Discharge Instructions: Abdominal Pain, Adult. - Prescriptions for Tylenol- Codeine #3 300-30 mg Oral Tablet - take 2 tablets by ORAL route every 6 hours As needed; 20 tablet. Zofran 4 mg Oral Tablet - take 1 tablet by ORAL route every 12 hours As needed; 20 tablet. - Medication Reconciliation Form, Thank You Letter, Antibiotic Education, Prescription Opioid Use form. - Follow up: Speedy Chowdhury MD; When: 2 - 3 days; Reason: Recheck today's complaints, Continuance of care, Re-evaluation by your physician. - Problem is new. - Symptoms have improved. Signatures: Dispatcher [employer] Mady Asif, Henry Limon RN, MD MD kdr Therrien, Shelly, NETWORK SYSTEMS ENGINEER-C NETWORK SYSTEMS ENGINEER-Csnw Ras Landry PA PA jr8 John Mann RN RN jd3 Corrections: (The following items were deleted from the chart) 10/14 21:20 20:43 10/14/2018 20:43 Discharged to Home. Impression: Abdominal and pelvic pain. jd3 Condition is Stable. Forms are Medication Reconciliation Form, Thank You Letter, Antibiotic Education, Prescription Opioid Use. Follow up: Speedy Chowdhury; When: 2 - 3 days; Reason: Recheck today's complaints, Continuance of care, Re-evaluation by your physician. Problem is new. Symptoms have improved. jr8
--- NOTE | 2018-10-14 20:44 | ER ---
Nurse's Notes [facility] Name: Sergei Walden Age: 38 yrs Sex: Male : 1980 Arrival Date: 10/14/2018 Time: 17:00 Bed 20 Private MD: None, None Diagnosis: Abdominal and pelvic pain Presentation: 10/14 17:37 Presenting complaint: Patient states: Upper abdominal burning for 1 week. Seen in this ER and by PCP. Transition of care: patient was not received from another setting of care. Onset of symptoms was October 07, 2018. Risk Assessment: Do you want to hurt yourself or someone else? Patient reports no desire to harm self or others. Initial Sepsis Screen: Does the patient meet any 2 criteria? No. Patient's initial sepsis screen is negative. Does the patient have a suspected source of infection? No. Patient's initial sepsis screen is negative. Care prior to arrival: None. 17:37 Method Of Arrival: Ambulatory 17:37 Acuity: ARGENIS 3 Triage Assessment: 17:39 General: Appears in no apparent distress. comfortable, Behavior is calm, cooperative, aj appropriate for age. Pain: Denies pain. Neuro: Level of Consciousness is awake, alert, obeys commands, Oriented to person, place, time, situation, Appropriate for age. Respiratory: Airway is patent Respiratory effort is even, unlabored, Respiratory pattern is regular, symmetrical. GI: Reports upper abdominal pain, indigestion, nausea, vomiting. Derm: Skin is intact, is healthy with good turgor, Skin is pink, warm \T\ dry. normal. Historical: - Allergies: 17:39 No Known Allergies; aj - Home Meds: 17:39 Nexium 20 mg Oral cpDR 1 cap once daily [Active]; aj - PMHx: 17:39 None; aj - PSHx: 17:39 Knee surgery; aj - Immunization history:: Adult Immunizations up to date. - Social history:: Smoking status: Patient/guardian denies using tobacco. - Ebola Screening: : Patient negative for fever greater than or equal to 101.5 degrees Fahrenheit, and additional compatible Ebola Virus Disease symptoms Patient denies exposure to infectious person Patient denies travel to an Ebola-affected area in the 21 days before illness onset No symptoms or risks identified at this time. Screenin:30 Abuse screen: Denies threats or abuse. Denies injuries from another. Nutritional sv screening: No deficits noted. Tuberculosis screening: No symptoms or risk factors identified. Fall Risk None identified. Assessment: 18:30 General: Appears in no apparent distress. uncomfortable, Behavior is calm, cooperative, sv appropriate for age. Pain: Complains of pain in epigastric area. Neuro: Level of Consciousness is awake, alert, obeys commands, Oriented to person, place, time, situation, Moves all extremities. Full function Gait is steady. Respiratory: Respiratory effort is even, unlabored, Respiratory pattern is regular, symmetrical. Derm: Skin is normal. Musculoskeletal: Range of motion: intact in all extremities. 19:30 Reassessment: Patient appears in no apparent distress at this time. No changes from d3 previously documented assessment. Patient and/or family updated on plan of care and expected duration. Pain level reassessed. Patient is alert, oriented x 3, equal unlabored respirations, skin warm/dry/pink. GI: Bowel sounds present X 4 quads. Abd is soft. 19:56 Reassessment: Patient appears in no apparent distress at this time. Patient and/or jd3 family updated on plan of care and expected duration. Pain level reassessed. Patient is alert, oriented x 3, equal unlabored respirations, skin warm/dry/pink. 21:13 Reassessment: Patient appears in no apparent distress at this time. No changes from jd3 previously documented assessment. Patient and/or family updated on plan of care and expected duration. Pain level reassessed. Patient is alert, oriented x 3, equal unlabored respirations, skin warm/dry/pink. Vital Signs: 17:39 BP 126 / 83; Pulse 73; Resp 17; Temp 98.2; Pulse Ox 99% on R/A; Weight 79.38 kg; Height aj 5 ft. 2 in. (157.48 cm); 19:56 BP 118 / 87; Pulse 62; Resp 16 S; Pulse Ox 98% on R/A; jd3 21:14 BP 120 / 70; Pulse 61; Resp 18 S; Pulse Ox 96% on R/A; jd3 17:39 Body Mass Index 32.01 (79.38 kg, 157.48 cm) ED Course: 17:00 Patient arrived in ED. mr 17:00 None, None is Private Physician. mr 17:38 Triage completed. aj 17:39 Arm band placed on left wrist. Patient placed in waiting room, Patient notified of wait aj time. 18:24 Ras Landry PA is PHCP. jr8 18:24 Henry Paul MD is Attending Physician. jr8 18:30 Patient has correct armband on for positive identification. Bed in low position. Door sv closed. Head of bed elevated. 18:31 Urine collected: clean catch specimen, cloudy, ruth ann colored. jb1 18:38 Chelsea Rodriguez, RN is Primary Nurse. sv 18:46 Initial lab(s) drawn, by id, sent to lab. Inserted saline lock: 22 gauge in right jb1 antecubital area, using aseptic technique. Blood collected. 18:59 Report given to John PINTO. sv 19:01 Primary Nurse role handed off by Chelsea Rodriguez, MILLIE sv 19:03 John Mann RN is Primary Nurse. jd3 20:[address] via wheelchair. vm2 20:10 CT completed. Patient tolerated procedure well. Patient moved back from CT. vm2 20:12 CT Abd/Pelvis - W/Contrast In Process Unspecified. EDMS 20:43 Speedy Chowdhury MD is Referral Physician. jr8 21:14 No provider procedures requiring assistance completed. jd3 21:20 IV discontinued, intact, bleeding controlled, No redness/swelling at site. Pressure jd3 dressing applied. Administered Medications: 19:31 Drug: Reglan 10 mg Route: IVP; Site: right antecubital; jd3 21:19 Follow up: Response: No adverse reaction jd3 19:31 Drug: Benadryl 12.5 mg Route: IVP; Site: right antecubital; jd3 21:19 Follow up: Response: No adverse reaction jd3 Outcome: 20:43 Discharge ordered by . jr8 21:19 Discharged to home ambulatory, with family. jd3 21:19 Condition: stable 21:19 Discharge instructions given to patient, Instructed on discharge instructions, follow up and referral plans. medication usage, Demonstrated understanding of instructions, follow-up care, medications, Prescriptions given X 2. 21:20 Patient left the ED. jd3 Signatures: Dispatcher [employer] EDVT Jonathan Ward jb1 Chelsea Rodriguez, RN RN sv Mady Rasheed RN RN ritchie Collazo, Dianne mr Ras Landry PA PA jr8 Sole De [facility] John Mann RN RN jd3
== END 2018-10-14 21:20 | disposition home or self-care (01) ==
LOC: ER 16:57
DX: R10.2 Pelvic and perineal pain (principal)
CPT/HCPCS: 36415; 74177; 80048; 80076; 81003; 81015; 83690; 85025; 96374; 96375; 99284; J2765; Q9967

== ENCOUNTER 2022-12-31 07:52 | Emergency (ER) | payer BC ==
--- OUTSIDE RECORDS SUMMARY | 2022-12-31 08:01 | XMS REPORT | Continuity of Care Document ---
:1980 Author Organization [facility] t Address [address] [place] [address] Care Team Providers Name Role Phone KHALIDA LANGLEY Primary Care Physician Unavailable DR VAZQUEZ FISCHER Attending Clinician Unavailable [id number] Attending Clinician Unavailable [phone] Attending Clinician Unavailable [id number] Attending Clinician Unavailable DR LEOLA CAVANAUGH Attending Clinician Unavailable [phone] Attending Clinician Unavailable DR KHALIDA LANGLEY Attending Clinician Unavailable [phone] Attending Clinician Unavailable [id number] Attending Clinician Unavailable DR HENRY STAUFFER Attending Clinician Unavailable [phone] Attending Clinician Unavailable [id number] Attending Clinician Unavailable DR CONOR PATE Attending Clinician Unavailable [phone] Attending Clinician Unavailable [id number] Attending Clinician Unavailable VISIT, NURSE [facility] XRAY Attending Clinician Unavailable Enrique Murphy Attending Clinician DR VAZQUEZ FISCHER Admitting Clinician Unavailable DR LEOLA CAVANAUGH Admitting Clinician Unavailable DR KHALIDA LANGLEY Admitting Clinician Unavailable DR HENRY STAUFFER Admitting Clinician Unavailable DR CONOR PATE Admitting Clinician Unavailable Enrique Murphy Admitting Clinician Payers Payer Name Policy Type Policy Number Effective Date Expiration Date S ource BLUE CROSS BLUE [id number] SHIELD - IP BLUE CROSS BLUE [id number] SHIELD - IP BLUE CROSS BLUE [id number] SHIELD - IP Problems Condition Condition Condition Status Onset Resolution Last Treating Co mments Source Name Details Category Date Date Treatment Clinician Date MEDIAL MEDIAL Diagnosis Active 2016-09-18 Me moria MENISCUS MENISCUS 07-18 13:31:00 l TEAR-S83.2 TEAR-S83.2 00:00: He saumya 41A 41A Active 00 07/18/2016 [place] Anxiety Anxiety Disease Active [facility] Hospita 00 l Seasonal Seasonal Disease Active Metho di allergies allergies 06-26 00:00: Hospita 00 l M23 - M23 - Diagnosis Active 2016-03-31 Mem oria INTERNAL INTERNAL 03-26 10:50:00 l DERANGEMEN DERANGEMEN 00:01: He saumya T OF KNEE T OF KNEE 00 Active 03/26/2016 [facility] [place] Strain of Strain of Problem Active 2018-04-18 Memoria neck neck 04-16 04:30:00 l muscle muscle 00:00: [place] (disorder) (disorder) 00 Active 04/16/2015 Problem 04/18/2018 Data migrated from [employer] on 05/23/15. [facility], [facility] [place], [place] Heartburn Heartburn Problem Active 2018-04-18 Memoria (finding) (finding) 04:30:00 l Active [place] [facility] [place] Monoparesi Monopares Problem Active 2018-04-18 Memoria s - leg is - leg 04:30:00 l (disorder) (disorder) He rmann Active Problem 04/18/2018 [facility] [place] Obesity Obesity Problem Active 2018-04-18 Me moria (disorder) (disorder) 04:30:00 l Active [place] Problem 04/18/2018 [facility] [place], [place] Tear of Tear of Problem Active 2018-04-18 Me moria lateral lateral 04:30:00 l meniscus meniscus Maikel n of knee of knee (disorder) (disorder) Active Problem 04/18/2018 Medical Group Tear of Tear of Problem Active 2018-04-18 Me moria medial medial 04:30:00 l meniscus meniscus Maikel n of knee of knee (disorder) (disorder) Active Problem 04/18/2018 [facility] Group, [place] S/P 07/25/16 S/P Diagnosis Active 2017-06-09 Memoria TEAR OF 07/25/16 11:56:00 l LATERAL TEAR OF Ernst MENISCUS LATERAL RIG MENISCUS RIG Active [facility] Allergies, Adverse Reactions, Alerts Allergy Allergy Status Severity Reaction(s) Onset Inactive Treating Comm ents Source Name Type Date Date Clinician No Known MA Active UNKNOWN [facility] Family History Family Member Diagnosis Comments Start Date Stop Date Source Natural father Hypertension [facility] Natural father Melanoma [facility] Paternal grandfather Old age [facility] Paternal grandmother Old age Meth [facility] Social History Social Habit Start Date Stop Date Quantity Comments Source History of Cigarette Smoker [facility] tobacco use [facility] Social History 2016-07-18 2016-07-18 [facility] stef 19:55:58 19:55:58 Tobacco use and 2016-06-26 2016-06-26 Smokeless tobacco [facility] exposure 00:00:00 00:00:00 non-user Hospital Alcohol intake 2016-06-26 2016-06-26 Current drinker of [facility] 00:00:00 00:00:00 alcohol (finding) Hospita l Tobacco Comment 2016-06-26 2016-06-26 teenage years[facility] Hospital Alcohol Comment 2016-06-26 2016-06-[address] 00:00:00 00:00:00 Hospital Sex [facility]igned At [birth year] [facility] 00[facility] Smoking Status Start Date Stop Date Source Ex-smoker 2016-06-26 00:00:00 2016-06-26 00:00:00 [facility] Medications Ordered Filled Start Stop Current Ordering Indication Dosage Frequency Signature Comments Components Source Medication Medication Date Date Medication? Clinician (SIG) Name Name Nelda Yes 2 puff, Memori a HFA 90 04-15 INHALER, l mcg/inh 16:47: Q4H, PRN Maikel n inhalation 00 wheezing, aerosol coughing, with or adapter shortness of breath, # 8 gm, 1 Refill(s), Pharmacy: [facility] Deion Lutz Yes 2 puff, Memori a HFA 90 5-31 INHALER, l mcg/inh 16:47: Q4H, PRN Maikel n inhalation 00 wheezing, aerosol coughing, with or adapter shortness of breath, # 8 gm, 1 Refill(s), Pharmacy: [facility] Yes 2 puff, Memori a HFA 90 5-31 INHALER, l mcg/inh 16:47: Q4H, PRN Maikel n inhalation 00 wheezing, aerosol coughing, with or adapter shortness of breath, # 8 gm, 1 Refill(s), Pharmacy: [facility] Pharmacy [facility] Yes 2 puff, Memori a HFA 90 5-31 INHALER, l mcg/inh 16:47: Q4H, PRN Maikel n inhalation 00 wheezing, aerosol coughing, with or adapter shortness of breath, # 8 gm, 1 Refill(s), Pharmacy: [facility] [place] Ciprofloxac Yes 500 mg = 1 Memoria in 500 MG 5-31 tab, PO, l Oral Tablet 16:12: Q12H, # 20 [place] [Cipro] 00 tab, 0 Refill(s) predniSONE 0 Yes 40 mg = 2 Me moria 20 mg oral 5-31 tab, PO, l tablet 16:12: BID, 0 Ernst 00 Refill(s) Ciprofloxac 2017-0 Yes 500 mg = 1 Memoria in 500 MG 5-31 tab, PO, l Oral Tablet 16:12: Q12H, # 20 [place] [Cipro] 00 tab, 0 Refill(s) predniSONE 2018-0 Yes 40 mg = 2 Me moria 20 mg oral 5-31 tab, PO, l tablet 16:12: BID, 0 Ernst 00 Refill(s) Ciprofloxac 2018-0 Yes 500 mg = 1 Memoria in 500 MG 5-31 tab, PO, l Oral Tablet 16:12: Q12H, # 20 [place] [Cipro] 00 tab, 0 Refill(s) predniSONE 2018-0 Yes 40 mg = 2 Me moria 20 mg oral 5-31 tab, PO, l tablet 16:12: BID, 0 [place] 00 Refill(s) Ciprofloxac 2018-0 Yes 500 mg = 1 Memoria in 500 MG 5-31 tab, PO, l Oral Tablet 16:12: Q12H, # 20 [place] [Cipro] 00 tab, 0 Refill(s) predniSONE Yes 40 mg = 2 Me moria 20 mg oral 5-31 tab, PO, l tablet 16:12: BID, 0 Ernst 00 Refill(s) Hydromorpho No Notes: Rodgre laura ne 07-25 (Same as: l 16:02: Dilaudid) Ernst Morphine No Notes: Memoria 07-25 (Same l 16:02: as:MORPhin [place] 00 e Sulfate) acetaminoph No Notes: Do M emoria en-codeine 07-25 not exceed l #3 16:02: 4gm/day of Ernst 00 acetaminop hen. (Same as: Tylenol with Codeine # 3) Acetaminoph No Notes: Do M emoria en 07-25 not exceed l 16:02: 4 gm/day. Ernst (Same as: Tylenol) Hydromorpho No Notes: Rodger laura ne 07-25 (Same as: l 16:02: Dilaudid) [place] Morphine No Notes: Memoria 07-25 (Same l 16:02: as:MORPhin [place] 00 e Sulfate) acetaminoph No Notes: Do M emoria en-codeine 07-25 not exceed l #3 16:02: 4gm/day of Ernst 00 acetaminop hen. (Same as: Tylenol with Codeine # 3) Acetaminoph No Notes: Do M emoria en 07-25 not exceed l 16:02: 4 gm/day. Ernst (Same as: Tylenol) Hydromorpho No Notes: Rodger laura ne 07-25 (Same as: l 16:02: Dilaudid) Ernst 00 Morphine No Notes: Memoria 07-25 (Same l 16:02: as:MORPhin [place] 00 e Sulfate) acetaminoph No Notes: Do M emoria en-codeine 07-25 not exceed l #3 16:02: 4gm/day of [place] 00 acetaminop hen. (Same as: Tylenol with Codeine # 3) Acetaminoph No Notes: Do M emoria en 07-25 not exceed l 16:02: 4 gm/day. (Same as: Tylenol) Hydromorpho No Notes: Rodger laura ne 07-25 (Same as: l 16:02: Dilaudid) Morphine No Notes: Memoria 07-25 (Same l 16:02: as:MORPhin e Sulfate) acetaminoph No Notes: Do M emoria en-codeine 07-25 not exceed l #3 16:02: 4gm/day of acetaminop hen. (Same as: Tylenol with Codeine # 3) Acetaminoph No Notes: Do M emoria en 07-25 not exceed l 16:02: 4 gm/day. (Same as: Tylenol) Acetaminoph Yes 1 - 2 tab, Memoria en 300 MG / 07-25 PO, Q4H, l Codeine 16:00: PRN Pain, Ratna nn Phosphate 00 X 14 day, 60 MG Oral # 50 tab, Tablet 0 [Tylenol Refill(s) with Codeine #4] Cephalexin Yes 500 mg = 1 M emoria 500 MG Oral 07-25 cap, PO, l Capsule 16:00: QID, X 3 Maikel n [Keflex] 00 day, # 12 cap, 0 Refill(s) Acetaminoph Yes 1 - 2 tab, Memoria en 300 MG / 07-25 PO, Q4H, l Codeine 16:00: PRN Pain, Ratna nn Phosphate 00 X 14 day, 60 MG Oral # 50 tab, Tablet 0 [Tylenol Refill(s) with Codeine #4] Cephalexin Yes 500 mg = 1 M emoria 500 MG Oral 07-25 cap, PO, l Capsule 16:00: QID, X 3 Maikel n [Keflex] 00 day, # 12 cap, 0 Refill(s) Acetaminoph Yes 1 - 2 tab, Memoria en 300 MG / 07-25 PO, Q4H, l Codeine 16:00: PRN Pain, Ratna nn Phosphate 00 X 14 day, 60 MG Oral # 50 tab, Tablet 0 [Tylenol Refill(s) with Codeine #4] Cephalexin Yes 500 mg = 1 M emoria 500 MG Oral 07-25 cap, PO, l Capsule 16:00: QID, X 3 Maikel n [Keflex] 00 day, # 12 cap, 0 Refill(s) Acetaminoph Yes 1 - 2 tab, Memoria en 300 MG / 07-25 PO, Q4H, l Codeine 16:00: PRN Pain, Ratna nn Phosphate 00 X 14 day, 60 MG Oral # 50 tab, Tablet 0 [Tylenol Refill(s) with Codeine #4] Cephalexin Yes 500 mg = 1 M emoria 500 MG Oral 07-25 cap, PO, l Capsule 16:00: QID, X 3 Maikel n [Keflex] 00 day, # 12 cap, 0 Refill(s) Acetaminoph No Notes: Max Memoria en 07-25 acetaminop l 15:59: hen 4000 [place] 00 mg/day (4 gm/day). (Same as: Tylenol Extra Strength) Hydromorpho No Notes: Rodger laura ne 07-25 (Same as: l 15:59: Dilaudid) Fentanyl No Notes: Memoria 07-25 (Same as: l 15:59: Sublimaze) Preservati ve free. Ondansetron No Notes: Rodger laura 07-25 (Same as: l 15:59: Zofran) MEDICATION WASTE Product Size: 4 mg Product Wasted: ___ mg Flumazenil No Notes: Memor ia 07-25 (Same as: l 15:59: Romazicon) Ernst 00 Naloxone No Notes: Memoria 07-25 Same as l 15:59: Narcan Ernst Acetaminoph No Notes: Max Memoria en 07-25 acetaminop l 15:59: hen 4000 [place] 00 mg/day (4 gm/day). (Same as: Tylenol Extra Strength) Hydromorpho No Notes: Rodger laura ne 07-25 (Same as: l 15:59: Dilaudid) [place] Fentanyl No Notes: Memoria 07-25 (Same as: l 15:59: Sublimaze) Ernst Preservati ve free. Ondansetron No Notes: Rodger laura 07-25 (Same as: l 15:59: Zofran) Ernst 00 MEDICATION WASTE Product Size: 4 mg Product Wasted: ___ mg Flumazenil No Notes: Memor ia 07-25 (Same as: l 15:59: Romazicon) [place] Naloxone No Notes: Memoria 07-25 Same as l 15:59: Narcan [place] Acetaminoph No Notes: Max Memoria en 07-25 acetaminop l 15:59: hen 4000 [place] 00 mg/day (4 gm/day). (Same as: Tylenol Extra Strength) Hydromorpho No Notes: Rodger laura ne 07-25 (Same as: l 15:59: Dilaudid) Ernst Fentanyl No Notes: Memoria 07-25 (Same as: l 15:59: Sublimaze) Ernst 00 Preservati ve free. Ondansetron No Notes: Rodger laura 07-25 (Same as: l 15:59: Zofran) Ernst 00 MEDICATION WASTE Product Size: 4 mg Product Wasted: ___ mg Flumazenil No Notes: Memor ia 07-25 (Same as: l 15:59: Romazicon) Ernst Naloxone No Notes: Memoria 07-25 Same as l 15:59: Narcan [place] Acetaminoph No Notes: Max Memoria en 07-25 acetaminop l 15:59: hen 4000 [place] 00 mg/day (4 gm/day). (Same as: Tylenol Extra Strength) Hydromorpho No Notes: Rodger laura ne 07-25 (Same as: l 15:59: Dilaudid) [place] Fentanyl No Notes: Memoria 07-25 (Same as: l 15:59: Sublimaze) [place] 00 Preservati ve free. Ondansetron No Notes: Rodger laura 07-25 (Same as: l 15:59: Zofran) MEDICATION WASTE Product Size: 4 mg Product Wasted: ___ mg Flumazenil No Notes: Memor ia 07-25 (Same as: l 15:59: Romazicon) Naloxone No Notes: Memoria 07-25 Same as l 15:59: Narcan ketOROLAC 0 No IV, ONCE Rodger laura (ANES) 07-25 l 15:52: ondansetron No Route: IV, Memoria (ANES) 07-25 Drug form: l 15:52: INJ, ONCE, Stop date: 07/25/16 10:52:00 CDT ketOROLAC 0 No IV, ONCE Rodger laura (ANES) 07-25 l 15:52: ondansetron No Route: IV, Memoria (ANES) 07-25 Drug form: l 15:52: INJ, ONCE, Stop date: 07/25/16 10:52:00 CDT ketOROLAC 0 No IV, ONCE Rodger laura (ANES) 07-25 l 15:52: ondansetron No Route: IV, Memoria (ANES) 07-25 Drug form: l 15:52: INJ, ONCE, Stop date: 07/25/16 10:52:00 CDT ketOROLAC 0 No IV, ONCE Rodger laura (ANES) 07-25 l 15:52: ondansetron No Route: IV, Memoria (ANES) 07-25 Drug form: l 15:52: INJ, ONCE, Stop date: 07/25/16 10:52:00 CDT midazolam 0 No Route: IV, Me moria (ANES) 07-25 Drug form: l 15:39: SOLN, ONCE, Stop date: 07/25/16 10:39:00 CDT ceFAZolin No Route: IV, Me moria (ANES) 07-25 Drug form: l 15:39: INJ, ONCE, Ernst 00 Stop date: 07/25/16 10:39:00 CDT fentaNYL 2016-0 No Route: IV, Mem oria (ANES) 07-25 Drug form: l 15:39: INJ, ONCE, Ernst 00 Stop date: 07/25/16 10:39:00 CDT lidocaine 2016-0 No Route: IV, Me moria (ANES) 07-25 Drug form: l 15:39: INJ, ONCE, Ernst 00 Stop date: 07/25/16 10:39:00 CDT propofol 2016-0 No Route: IV, Mem oria (ANES) 07-25 Drug form: l 15:39: INJ, ONCE, [place] 00 Stop date: 07/25/16 10:39:00 CDT midazolam 2016-0 No Route: IV, Me moria (ANES) 07-25 Drug form: l 15:39: SOLN, [place] ONCE, Stop date: 07/25/16 10:39:00 CDT ceFAZolin 2016-0 No Route: IV, Me moria (ANES) 07-25 Drug form: l 15:39: INJ, ONCE, Ernst 00 Stop date: 07/25/16 10:39:00 CDT fentaNYL 2016-0 No Route: IV, Mem oria (ANES) 07-25 Drug form: l 15:39: INJ, ONCE, Ernst 00 Stop date: 07/25/16 10:39:00 CDT lidocaine 2016-0 No Route: IV, Me moria (ANES) 07-25 Drug form: l 15:39: INJ, ONCE, [place] 00 Stop date: 07/25/16 10:39:00 CDT propofol 2016-0 No Route: IV, Mem oria (ANES) 07-25 Drug form: l 15:39: INJ, ONCE, Ernst 00 Stop date: 07/25/16 10:39:00 CDT midazolam 2016-0 No Route: IV, Me moria (ANES) 07-25 Drug form: l 15:39: SOLN, [place] 00 ONCE, Stop date: 07/25/16 10:39:00 CDT ceFAZolin 2016-0 No Route: IV, Me moria (ANES) 07-25 Drug form: l 15:39: INJ, ONCE, [place] 00 Stop date: 07/25/16 10:39:00 CDT fentaNYL 2016-0 No Route: IV, Mem oria (ANES) 07-25 Drug form: l 15:39: INJ, ONCE, [place] 00 Stop date: 07/25/16 10:39:00 CDT lidocaine 2016-0 No Route: IV, Me moria (ANES) 07-25 Drug form: l 15:39: INJ, ONCE, [place] 00 Stop date: 07/25/16 10:39:00 CDT propofol 2016-0 No Route: IV, Mem oria (ANES) 07-25 Drug form: l 15:39: INJ, ONCE, [place] Stop date: 07/25/16 10:39:00 CDT midazolam 2016-0 No Route: IV, Me moria (ANES) 07-25 Drug form: l 15:39: SOLN, ONCE, Stop date: 07/25/16 10:39:00 CDT ceFAZolin 2015-0 No Route: IV, Me moria (ANES) 07-25 Drug form: l 15:39: INJ, ONCE, Ernst 00 Stop date: 07/25/16 10:39:00 CDT fentaNYL 2015-0 No Route: IV, Mem oria (ANES) 07-25 Drug form: l 15:39: INJ, ONCE, Ernst 00 Stop date: 07/25/16 10:39:00 CDT lidocaine 2016-0 No Route: IV, Me moria (ANES) 07-25 Drug form: l 15:39: INJ, ONCE, Ernst 00 Stop date: 07/25/16 10:39:00 CDT propofol 2016-0 No Route: IV, Mem oria (ANES) 07-25 Drug form: l 15:39: INJ, ONCE, Ernst Stop date: 07/25/16 10:39:00 CDT acetaminoph 0 No Route: IV, Memoria en (ANES) 07-25 Drug form: l (ANES) 15:19: INJ, Start Ratna nn 00 date: 07/25/16 10:19:00 CDT, Stop date: 07/25/16 11:19:00 CDT acetaminoph 0 No Route: IV, Memoria en (ANES) 07-25 Drug form: l (ANES) 15:19: INJ, Start Ratna date: 07/25/16 10:19:00 CDT, Stop date: 07/25/16 11:19:00 CDT acetaminoph No Route: IV, Memoria en (ANES) 07-25 Drug form: l (ANES) 15:19: INJ, Start Ratna date: 07/25/16 10:19:00 CDT, Stop date: 07/25/16 11:19:00 CDT acetaminoph No Route: IV, Memoria en (ANES) 07-25 Drug form: l (ANES) 15:19: INJ, Start Ratna date: 07/25/16 10:19:00 CDT, Stop date: 07/25/16 11:19:00 CDT LR 1000 mL No Route: IV, M emoria INJ (ANES) 07-25 Total l 14:55: Volume: Ernst 00 1,000, Start date: 07/25/16 9:55:00 CDT, Stop date: 07/25/16 10:55:00 CDT LR 1000 mL No Route: IV, M emoria INJ (ANES) 07-25 Total l 14:55: Volume: [place] 00 1,000, Start date: 07/25/16 9:55:00 CDT, Stop date: 07/25/16 10:55:00 CDT LR 1000 mL No Route: IV, M emoria INJ (ANES) 07-25 Total l 14:55: Volume: Ernst 00 1,000, Start date: 07/25/16 9:55:00 CDT, Stop date: 07/25/16 10:55:00 CDT LR 1000 mL No Route: IV, M emoria INJ (ANES) 07-25 Total l 14:55: Volume: Ernst 00 1,000, Start date: 07/25/16 9:55:00 CDT, Stop date: 07/25/16 10:55:00 CDT Lidocaine No Notes: Memori a Hydrochlori 07-25 Preservati l de 10 MG/ML 13:00: ve free. He rmann Injectable 00 (Same as: Solution Xylocaine MPF) Lidocaine No Notes: Memori a Hydrochlori 9- Preservati l de 10 MG/ML 13:00: ve free. He rmann Injectable 00 (Same as: Solution Xylocaine MPF) Lidocaine No Notes: Memori a Hydrochlori 9- Preservati l de 10 MG/ML 13:00: ve free. He rmann Injectable 00 (Same as: Solution Xylocaine MPF) Lidocaine No Notes: Memori a Hydrochlori - Preservati l de 10 MG/ML 13:00: ve free. He rmann Injectable 00 (Same as: Solution Xylocaine MPF) Calcium No 1,000 mL, Memor ia Chloride 07-25 Rate: 25 l 0.0014 12:46: ml/hr, Ernst MEQ/ML / 00 Infuse Potassium over: 40 Chloride hr, Route: 0.004 IV, Dosing MEQ/ML / Weight Sodium 78.636 kg, Chloride Total 0.103 Volume: MEQ/ML / 1,000, Sodium Start Lactate date: 0.028 07/25/16 MEQ/ML 7:46:00 Injectable CDT, Solution Duration: 30 day, Stop date: 08/24/16 7:45:00 CDT Calcium 2015- No 1,000 mL, Memor ia Chloride 07-25 Rate: 25 l 0.0014 12:46: ml/hr, [place] MEQ/ML / 00 Infuse Potassium over: 40 Chloride hr, Route: 0.004 IV, Dosing MEQ/ML / Weight Sodium 78.636 kg, Chloride Total 0.103 Volume: MEQ/ML / 1,000, Sodium Start Lactate date: 0.028 07/25/16 MEQ/ML 7:46:00 Injectable CDT, Solution Duration: 30 day, Stop date: 08/24/16 7:45:00 CDT Calcium 2015-0 No 1,000 mL, Memor ia Chloride 07-25 Rate: 25 l 0.0014 12:46: ml/hr, Ernst MEQ/ML / 00 Infuse Potassium over: 40 Chloride hr, Route: 0.004 IV, Dosing MEQ/ML / Weight Sodium 78.636 kg, Chloride Total 0.103 Volume: MEQ/ML / 1,000, Sodium Start Lactate date: 0.028 07/25/16 MEQ/ML 7:46:00 Injectable CDT, Solution Duration: 30 day, Stop date: 08/24/16 7:45:00 CDT Calcium No 1,000 mL, Memor ia Chloride 07-25 Rate: 25 l 0.0014 12:46: ml/hr, [place] MEQ/ML / 00 Infuse Potassium over: 40 Chloride hr, Route: 0.004 IV, Dosing MEQ/ML / Weight Sodium 78.636 kg, Chloride Total 0.103 Volume: MEQ/ML / 1,000, Sodium Start Lactate date: 0.028 07/25/16 MEQ/ML 7:46:00 Injectable CDT, Solution Duration: 30 day, Stop date: 08/24/16 7:45:00 CDT ceFAZolin No Notes: Memori a 07-25 Same as: l 11:00: Ancef Ernst 00 ceFAZolin No Notes: Memori a 07-25 Same as: l 11:00: Ancef [place] 00 ceFAZolin No Notes: Memori a 07-25 Same as: l 11:00: Ancef [place] 00 ceFAZolin No Notes: Memori a 07-25 Same as: l 11:00: Ancef Ernst 00 Vital Signs Vital Name Observation Time Observation Value Comments Source BMI Calculated 2018-04-15 15:58:00 Memkate al [place] Weight 2018-04-15 15:58:00 [facility] Height 2018-04-15 15:58:00 159.39 cm [facility] Heart Rate 2018-04-15 15:58:00 [facility] [place] Respitory Rate 2018-04-15 15:58:00 Memori al [place] Systolic (mm Hg) 2018-04-15 15:58:00 Rodger rial Ernst Diastolic (mm Hg) 2018-04-15 15:58:00 Mem orial Ernst Respitory Rate 2016-07-25 18:50:00 Memori al [place] Systolic (mm Hg) 2016-07-25 18:50:00 Rodger rial [place] Diastolic (mm Hg) 2016-07-25 18:50:00 Mem orial [place] Respitory Rate 2016-07-25 17:00:00 Memori al Ernst Systolic (mm Hg) 2016-07-25 16:45:00 Rodger rial [place] Diastolic (mm Hg) 2016-07-25 16:45:00 Mem orial Ernst Respitory Rate 2016-07-25 16:45:00 Memori al Ernst Systolic (mm Hg) 2016-07-25 16:30:00 Rodger rial [place] Diastolic (mm Hg) 2016-07-25 16:30:00 Mem orial [place] Weight 2016-07-25 12:45:00 [facility] BMI Calculated 2016-07-25 12:45:00 Memori al [place] Heart Rate 2016-07-18 20:17:00 [facility] Height 2016-07-18 19:53:00 157.48 cm [facility] Procedures Procedure Date / Time Performed Performing Clinician [facility] camille Arthroscopy of knee 2016-07-25 05:00:00 [facility] Plan of Care Planned Activity Planned Date Details Comments Source Future Scheduled 2022-10-31 COVID-19 VACCINE Method[facility] Test 12:41:41 (#1) [code = COVID-19 VACCINE (#1)] Future Scheduled 2022-10-31 INFLUENZA VACCINE Method [facility] Test 12:41:41 [code = INFLUENZA VACCINE] Future Scheduled 2022-10-31 COVID-19 VACCINE Method[facility] Test 12:41:41 (#1) [code = COVID-19 VACCINE (#1)] Future Scheduled 2022-10-31 INFLUENZA VACCINE Method [facility] Test 12:41:41 [code = INFLUENZA VACCINE] Future Scheduled 2022-10-31 COVID-19 VACCINE Methodi [facility] Test 12:41:41 (#1) [code = COVID-19 VACCINE (#1)] Future Scheduled 2022-10-31 INFLUENZA VACCINE Method is Hospital Test 12:41:41 [code = INFLUENZA VACCINE] Future Scheduled 2022-10-31 COVID-19 VACCINE Methodi [facility] Test 12:41:41 (#1) [code = COVID-19 VACCINE (#1)] Future Scheduled 2022-10-31 INFLUENZA VACCINE Method [facility] Test 12:41:41 [code = INFLUENZA VACCINE] Encounters Start End Encounter Admission Attending Care Care Encounter Source Date/Time Date/Time Type Type Clinicians Facility Department ID 2022-12-17 Outpatient VAZQUEZ FISCHER -2 El 10:07:07 [id number] [place] [id number] [facility] [id number] 2022-05-31 Outpatient VAZQUEZ FISCHER ELCAMPO -2 El 08:02:45 [id number] [place] [id number] Memor ia [id number] [facility]ospita [facility] 2022-05-20 Outpatient VAZQUEZ FISCHER ELCAMPO El 14:36:43 [id number] [place] [id number] Mem[facility] ia [id number] [facility]ospita [facility] 2022-05-12 Outpatient LEOLA CAVANAUGHPO ELCAMPO El 16:33:32 [id number] [place] [facility] 2022-12-17 2022-12-17 Outpatient N KHALIDA LANGLEY [facility] [id number] El 10:07:00 10:07:00 [id number] [place] [id number] [facility] 2022-12-17 2022-12-17 [id number] El 08:49:00 10:01:00 [id number] [place] [facility] [id number] [facility] 2022-05-31 2022-05-31 Outpatient HENRY ARANDA[facility] [facility] [id number] [place] 08:02:00 18:01:00 [id number] [place] [facility] [id number] [facility] 2022-05-21 2022-05-21 [facility] [id number] [place] 14:38:00 14:38:00 [id number] Pia [id number] [id number] 2022-05-12 2022-05-12 Emergency [facility] 1 [id number] [place] 16:25:00 16:57:00 [id number] ROOM [facility] po [id number] [facility] 2018-04-15 2018-04-16 Outpatient nullFlavo [facility] 4 [id number] Memoria 16:45:00 04:59:59 r Medicine [place] 10 imelda Dukes 2018-04-15 2018-04-16 Outpatient nullFlavo [facility] 4 [id number] Memoria 16:45:00 04:59:59 r Medicine El 10 imelda Dukes 2018-04-15 2018-04-16 Outpatient nullFlavo [facility] 4 [id number] Memoria 16:00:00 04:59:59 r Medicine [place] 08 imelda Dukes 2018-04-15 2018-04-16 Outpatient nullFlavo [facility] 4 [id number] [facility]oria 16:00:00 04:59:59 r Medicine [place] 08 imelda Dukes 2018-04-15 2018-04-15 Outpatient VISIT, [facility] [id number] 11:45:00 23:59:[address] JUDY 2018-04-15 2018-04-15 Outpatient [facility] [id number] 11:00:00 23:59:59 2018-04-15 2018-04-15 Ambulatory nullFlavo [facility] [id number] Memoria 16:45:00 16:45:00 Pre-Reg r Radiology 09 Rafal Dukes 2018-04-15 2018-04-15 Ambulatory nullFlavo [facility] [id number] Memoria 16:45:00 16:45:00 Pre-Reg r Radiology 09 Rafal Dukes 2018-04-15 2018-04-15 Outpatient MHIE MHIE [id number] Memoria 11:45:00 11:45:00 10 imelda Ernst 2018-04-15 2018-04-15 Outpatient [facility]IE [facility]IE [id number] Memoria 11:45:00 11:45:00 09 [place] 2018[place] 2018-04-15 Outpatient VISIT, [facility] [id number] 11:45:00 11:45:00 NURSE STEC 09 XRPIRCILA 2018-04-15 2018-04-15 Outpatient MHIE MHIE [id number] Memoria 11:00:00 11:00:00 08 imelda Dukes 2016-08-18 2016-08-18 Outpatient MHIE MHIE [id number] Memoria 15:45:00 15:45:00 07 imelda Dukes 2016-08-18 2016-08-18 Outpatient MHIE MHIE [id number] Memoria 15:45:00 15:45:00 07 l [place] 2016-08-07 2016-08-07 Outpatient MHIE YESSENIA [id number] Memoria 11:15:00 11:15:00 06 l [place] 2016-08-07 2016-08-07 Outpatient MHRIAZ CASAS [id number] Memoria 11:15:00 11:15:00 06 l [place] 2016-07-31 2016-07-31 Outpatient MHRIAZ CASAS [id number] Memoria 10:30:00 10:30:00 05 l [place] 2016-07-31 2016-07-31 Outpatient MHIE YESSENIA [id number] Memoria 10:30:00 10:30:00 05 l [place] 2016-07-25 2016-07-25 Day [facility]Flavo [facility] [id number] Memoria 11:56:30 19:00:00 Surgery r [place] 03 l [place] 2016-07-25 2016-07-25 Day [facility]Flavo [facility] [id number] Memoria 11:56:30 19:00:00 Surgery r [place] 03 l [place] 2016-07-25 2016-07-25 Outpatient Jeffrey, MHSL SL [id number] 06:56:30 14:00:00 Enrique F 2016-07-04 2016-07-04 Outpatient YESSENIA CASAS [id number] Memoria 15:15:00 15:15:00 04 l [place] 2016-07-04 2016-07-04 Outpatient YESSENIA CASAS [id number] Memoria 15:15:00 15:15:00 04 l [place] 2016-03-31 2016-04-01 Outpt Diag nullFlavo [facility] [id number] Memoria 15:41:00 04:59:00 Services r Outpatient 00 l Imaging [place] 2016-03-31 2016-04-01 Outpt Diag nullFlavo [facility] [id number] Memoria 15:41:00 04:59:00 Services r Outpatient 00 l Imaging [place] 2016-03-31 2016-03-31 Outpatient Jeffrey, MH29 [facility] [id number] 10:41:00 23:59:00 Enrique F 00 2016-03-24 2016-03-24 Outpatient YESSENIA CASAS [id number] Memoria 14:00:00 14:00:00 01 imelda [place] 2016-03-24 2016-03-24 Outpatient RIAZ RIAZ [id number] Memoria 14:00:00 14:00:00 01 imelda [place] 2016-03-24 2016-03-24 Outpatient RIAZ RIAZ [id number] Memoria 13:30:00 13:30:00 02 imelda [place] 2016-03-24 2016-03-24 [id number] 13:30:00 13:30:00 02 imelda [place] 2015-08-06 2015-08-06 [id number] Memoria 14:15:00 14:15:00 00 [facility] 2015-08-06 2015-08-06 [facility] [id number] Memoria 14:15:00 14:15:00 00 imelda [place] Results Test Description Test Time Test Comments Results Result Comments Source HEMATOLOGY 2016-07-18 20:06:00 Test Item Value Reference Range Interpretation Comme nts INR (test code = INR) 1.08 0.85-1.17 [facility]NbklbjpBTDLOLJRST7609-19-78 20:06:00 Test Item Value Reference Range Interpretation Comments Sed Rate (test code = 19 See_Comment [Auto mated message] The Sed Rate) system which ge nerated this result transmit moriah reference range : <=15. The reference range was not used to interpr et this result as valerio l/abnormal. [facility] HospitalZzfgzdfRSECONINWD1852-21-74 20:06:00 Test Item Value Reference Range Interpretation Comments MPV (test code = MPV) 7.8 7.4-10.4 [facility] HospitalCibutehEJFDJSQRXO6476-52-63 20:06:00 Test Item Value Reference Range Interpretation Comments RDW (test code = RDW) 13.5 11.5-14.5 [facility] HospitalJgoyvftTLVXKQFZNY2305-28-58 20:06:00 Test Item Value Reference Range Interpretation Comments Platelet (test code = Platelet) 376 133-450 [facility] HospitalIdrhwuyIBYSVVFWFA1700-61-71 20:06:00 Test Item Value Reference Range Interpretation Comments MCHC (test code = MCHC) 31.5 32.0-36.0 [facility] HospitalJefqzzqTRCHXMCFTH2242-68-83 20:06:00 Test Item Value Reference Range Interpretation Comments MCH (test code = MCH) 27.2 pg 27.0-31.0 [facility] HospitalBawsbikKKGBVPXJQQ5691-52-59 20:06:00 Test Item Value Reference Range Interpretation Comments Hct (test code = Hct) 44.6 42.0-54.0 [facility] HospitalVjmkxkwRZKJLCOSYM4530-11-34 20:06:00 Test Item Value Reference Range Interpretation Comments Hgb (test code = Hgb) 14.1 14.0-18.0 [facility] HospitalErtevxnBKPWXXOHSM6910-65-19 20:06:00 Test Item Value Reference Range Interpretation Comments MCV (test code = MCV) 86.4 80.0-94.0 [facility] HospitalMuwungdRXVGYCMXFX9157-51-93 20:06:00 Test Item Value Reference Range Interpretation Comments RBC (test code = RBC) 5.16 4.70-6.10 [facility] HospitalOqbrhxuLUXXVSZLMJ7335-34-01 20:06:00 Test Item Value Reference Range Interpretation Comments WBC (test code = WBC) 7.6 3.7-10.4 [facility] HospitalJjjjvfnWCYYRRZEHR9641-83-07 20:06:00 Test Item Value Reference Range Interpretation Comments Basophils # (test code 0.0 See_Comment [Aut omated message] The = Basophils #) system which generated this result tra nsmitted reference range : <=0.2. The reference r artemio was not used to int erpret this result as normal/abnormal . [facility] HospitalEzdmilzAQYDZFIXQX4133-42-42 20:06:00 Test Item Value Reference Range Interpretation Comments Eosinophils (test code = 3.5 See_Comment [A utomated message] The Eosinophils) system which ge nerated this result tra nsmitted reference range : <=4.0. The reference r artemio was not used to int erpret this result as normal/abnormal . [facility] HospitalRqfhzjqFCTZMNCTFY8640-68-88 20:06:00 Test Item Value Reference Range Interpretation Comments Basophils (test code = 0.4 See_Comment [Aut omated message] The Basophils) system which ge nerated this result tra nsmitted reference range : <=1.0. The reference r artemio was not used to int erpret this result as normal/abnormal . [facility] HospitalTxvemkaFCPFSHJKDY3039-31-73 20:06:00 Test Item Value Reference Range Interpretation Comments Monocytes (test code = Monocytes) 6.6 2.0-12.0 [facility] HospitalDvmdjqcUPSCWZERGV9241-46-39 20:06:00 Test Item Value Reference Range Interpretation Comments Lymphocytes (test code = Lymphocytes) 31.1 20.0-40.0 [facility] HospitalLfyaonzDQYBLATPRU5628-26-21 20:06:00 Test Item Value Reference Range Interpretation Comments Segs (test code = Segs) 58.4 45.0-75.0 [facility] HospitalUjjcnopWIDUUYIHFJ9200-92-72 20:06:00 Test Item Value Reference Range Interpretation Comments Eosinophils # (test code 0.3 See_Comment [A utomated message] The = Eosinophils #) system whic h generated this result tra nsmitted reference range : <=0.5. The reference r artemio was not used to int erpret this result as normal/abnormal . [facility] HospitalFrzbylfATDFREGYEG1596-86-03 20:06:00 Test Item Value Reference Range Interpretation Comments Monocytes # (test code 0.5 See_Comment [Aut omated message] The = Monocytes #) system which generated this result tra nsmitted reference range : <=0.8. The reference r artemio was not used to int erpret this result as normal/abnormal . [facility] HospitalIxuazeuUSVGAPTFXR8354-11-93 20:06:00 Test Item Value Reference Range Interpretation Comments Segs-Bands # (test code = Segs-Bands #) 4.5 1.5-8.1 [facility] HospitalYvfeufcFOXWYMVNCN6595-85-17 20:06:00 Test Item Value Reference Range Interpretation Comments Lymphocytes # (test code = Lymphocytes 2.4 1.0-5.5 #) [facility]2016-09-02 20:06:00 Test Item Value Reference Range Interpretation Comments UA RBC (test code = 0-2 /HPF See_Comment [Automa moriah message] The UA RBC) system which ge nerated this result tra nsmitted reference range : <=2. The reference range was not used to interpr et this result as valerio l/abnormal. [facility]2016-09-02 20:06:00 Test Item Value Reference Range Interpretation Comments UA Bacteria (test code = UA Few /HPF Bacteria) [facility]2016-09-02 20:06:00 Test Item Value Reference Range Interpretation Comments UA WBC (test code = UA WBC) 0-2 /HPF [facility] AND [id number] 20:06:00 Test Item Value Reference Range Interpretation Comments UA Mucus (test code = UA Mucus) Moderate /LPF [facility] AND [id number] 20:06:00 Test Item Value Reference Range Interpretation Comments UA Sperm (test code = UA Occasional /HPF Sperm) [facility] AND [id number] 20:06:00 Test Item Value Reference Range Interpretation Comments UA Urobilinogen (test code = UA 0.2 0.1-1.0 Urobilinogen) [facility] AND [id number] 20:06:00 Test Item Value Reference Range Interpretation Comments UA Leuk Est (test Negative (07/18/16 3:06 code = UA Leuk Est) PM) [facility] AND [id number] 20:06:00 Test Item Value Reference Range Interpretation Comments UA Nitrite (test code Negative (07/18/16 3:06 = UA Nitrite) PM) [facility] AND [id number] 20:06:00 Test Item Value Reference Range Interpretation Comments UA Blood (test code = Trace *ABN*(07/18/16 UA Blood) 3:06 PM) [facility] AND [id number] 20:06:00 Test Item Value Reference Range Interpretation Comments UA Bili (test code = Negative *NA*(07/18/16 UA Bili) 3:06 PM) [facility] AND [id number] 20:06:00 Test Item Value Reference Range Interpretation Comments UA Ketones (test code Negative *NA*(07/18/16 = UA Ketones) 3:06 PM) [facility] AND [id number] 20:06:00 Test Item Value Reference Range Interpretation Comments UA Sq Epi (test code = UA Sq Epi) Few /LPF [facility] AND [id number] 20:06:00 Test Item Value Reference Range Interpretation Comments UA Color (test code = Yellow *NA*(07/18/16 3:06 UA Color) PM) [facility] AND [id number] 20:06:00 Test Item Value Reference Range Interpretation Comments UA Turbidity (test code = Clear (07/18/16 3:06 UA Turbidity) PM) [facility] AND [id number] 20:06:00 Test Item Value Reference Range Interpretation Comments UA pH (test code = UA pH) 6.0 1 5.0-8.0 [facility] AND [id number] 20:06:00 Test Item Value Reference Range Interpretation Comments UA Spec Grav (test code = UA Spec 1.025 1 Grav) [facility] AND [id number] 20:06:00 Test Item Value Reference Range Interpretation Comments UA Glucose (test code Negative (07/18/16 3:06 = UA Glucose) PM) [facility] AND [id number] 20:06:00 Test Item Value Reference Range Interpretation Comments UA Protein (test code Negative (07/18/16 3:06 = UA Protein) PM) [facility]laIFKLIPJZEXPX9555-11-94 20:06:00 Test Item Value Reference Range Interpretation Comments AGAP (test code = AGAP) 11.2 10.0-20.0 [facility] HospitalYzlrxbjHJJKTHCRWMIO8331-58-75 20:06:00 Test Item Value Reference Range Interpretation Comments eGFR (test code = eGFR) 104 [facility] HospitalAdacvzrXVKEYNYFNKUN5223-06-52 20:06:00 Test Item Value Reference Range Interpretation Comments CO2 (test code = CO2) 31 24-32 [facility] HospitalFzqerfoFNSCMCIGHGQS7860-57-78 20:06:00 Test Item Value Reference Range Interpretation Comments Creatinine Lvl (test code = Creatinine 0.95 0.50-1.40 Lvl) [facility] HospitalQsecfhoYIBBDRDEXMRH6935-21-04 20:06:00 Test Item Value Reference Range Interpretation Comments Chloride Lvl (test code = Chloride Lvl) 107 95-109 [facility] HospitalSgjfvvgAIPPNXQONZAD4098-21-45 20:06:00 Test Item Value Reference Range Interpretation Comments Potassium Lvl (test code = Potassium 4.2 3.5-5.1 Lvl) [facility] HospitalGchzeflNSORHTKBVFFR6359-90-35 20:06:00 Test Item Value Reference Range Interpretation Comments Sodium Lvl (test code = Sodium Lvl) 145 135-145 [facility] HospitalMmwpongDKRGSAKNOWFY4471-07-66 20:06:00 Test Item Value Reference Range Interpretation Comments Calcium Lvl (test code = Calcium Lvl) 8.8 8.5-10.5 [facility] HospitalWyfklhfFOCXDSGFADIH1260-28-30 20:06:00 Test Item Value Reference Range Interpretation Comments Glucose Lvl (test code = Glucose Lvl) 88 70-99 [facility] HospitalNmeqpegMOXVRMNHWYDL9701-72-38 20:06:00 Test Item Value Reference Range Interpretation Comments BUN (test code = BUN) 21 7-22 [facility] HospitalIzvropwXYAVIMEUWO2610-65-98 20:06:00 Test Item Value Reference Range Interpretation Comments PTT (test code = PTT) 37.3 s 22.9-35.8 [facility] HospitalXbsrohaHXZLTDJUZX9991-53-31 20:06:00 Test Item Value Reference Range Interpretation Comments PT (test code = PT) 14.3 s 12.0-14.7 [facility] HospitalPkdiaqyVVKHKGCYTL2547-25-02 20:06:00 Test Item Value Reference Range Interpretation Comments INR (test code = INR) 1.08 0.85-1.17 [facility] HospitalNuycsbnVLULAYABYA7584-18-11 20:06:00 Test Item Value Reference Range Interpretation Comments Sed Rate (test code = 19 See_Comment [Auto mated message] The Sed Rate) system which ge nerated this result transmit moriah reference range : <=15. The reference range was not used to interpr et this result as valerio l/abnormal. [facility] HospitalWelqrupOSITPGUQJM7786-85-93 20:06:00 Test Item Value Reference Range Interpretation Comments MPV (test code = MPV) 7.8 7.4-10.4 [facility] HospitalFushswdTHJQDCBZVT4803-07-60 20:06:00 Test Item Value Reference Range Interpretation Comments RDW (test code = RDW) 13.5 11.5-14.5 [facility] HospitalZfnuauyDKMGEBGLUL5412-26-05 20:06:00 Test Item Value Reference Range Interpretation Comments Platelet (test code = Platelet) 376 133-450 [facility] HospitalZxpnfpnJBFUZJYOFU1357-82-23 20:06:00 Test Item Value Reference Range Interpretation Comments MCHC (test code = MCHC) 31.5 32.0-36.0 [facility] HospitalFisnodmDAUUUIWOOF9682-92-02 20:06:00 Test Item Value Reference Range Interpretation Comments MCH (test code = MCH) 27.2 pg 27.0-31.0 [facility] HospitalMlpzjbcUIZOPCJDQY5448-63-67 20:06:00 Test Item Value Reference Range Interpretation Comments Hct (test code = Hct) 44.6 42.0-54.0 [facility] HospitalYojtffoUSZNFXYUEU9209-14-14 20:06:00 Test Item Value Reference Range Interpretation Comments Hgb (test code = Hgb) 14.1 14.0-18.0 [facility] HospitalFnlbmgsQKTJPIFWNB4590-06-01 20:06:00 Test Item Value Reference Range Interpretation Comments MCV (test code = MCV) 86.4 80.0-94.0 [facility] HospitalRyacfxjZZTSEQPOEV6040-40-66 20:06:00 Test Item Value Reference Range Interpretation Comments RBC (test code = RBC) 5.16 4.70-6.10 [facility] HospitalZjobbnlWKNHCURPEY5406-32-63 20:06:00 Test Item Value Reference Range Interpretation Comments WBC (test code = WBC) 7.6 3.7-10.4 [facility] HospitalJamxsocZHQPJVNLWU3142-79-18 20:06:00 Test Item Value Reference Range Interpretation Comments Basophils # (test code 0.0 See_Comment [Aut omated message] The = Basophils #) system which generated this result tra nsmitted reference range : <=0.2. The reference r artemio was not used to int erpret this result as normal/abnormal . [facility] HospitalQkjyefgDTEUGGUTIL2451-63-99 20:06:00 Test Item Value Reference Range Interpretation Comments Eosinophils (test code = 3.5 See_Comment [A utomated message] The Eosinophils) system which ge nerated this result tra nsmitted reference range : <=4.0. The reference r artemio was not used to int erpret this result as normal/abnormal . [facility] HospitalMpfjnstYSLGVQDNPF2662-69-06 20:06:00 Test Item Value Reference Range Interpretation Comments Basophils (test code = 0.4 See_Comment [Aut omated message] The Basophils) system which ge nerated this result tra nsmitted reference range : <=1.0. The reference r artemio was not used to int erpret this result as normal/abnormal . [facility] HospitalCmmypalWJIDPXIICM9750-49-58 20:06:00 Test Item Value Reference Range Interpretation Comments Monocytes (test code = Monocytes) 6.6 2.0-12.0 [facility] HospitalAczmbmzLMJWOORWHJ9596-00-99 20:06:00 Test Item Value Reference Range Interpretation Comments Lymphocytes (test code = Lymphocytes) 31.1 20.0-40.0 [facility] HospitalQtuajwgQCDAIUGKSD3848-40-64 20:06:00 Test Item Value Reference Range Interpretation Comments Segs (test code = Segs) 58.4 45.0-75.0 [facility] HospitalPdezdxzZKRCVXQBWQ5871-87-60 20:06:00 Test Item Value Reference Range Interpretation Comments Eosinophils # (test code 0.3 See_Comment [A utomated message] The = Eosinophils #) system whic h generated this result tra nsmitted reference range : <=0.5. The reference r artemio was not used to int erpret this result as normal/abnormal . [facility] HospitalYzixrnkDUKZOEDWGY2980-38-93 20:06:00 Test Item Value Reference Range Interpretation Comments Monocytes # (test code 0.5 See_Comment [Aut omated message] The = Monocytes #) system which generated this result tra nsmitted reference range : <=0.8. The reference r artemio was not used to int erpret this result as normal/abnormal . [facility] HospitalWjgdhrfWJWZUWINRN1478-77-82 20:06:00 Test Item Value Reference Range Interpretation Comments Segs-Bands # (test code = Segs-Bands #) 4.5 1.5-8.1 [facility] HospitalFhqqkeyIYEKNEVOJZ9568-40-11 20:06:00 Test Item Value Reference Range Interpretation Comments Lymphocytes # (test code = Lymphocytes 2.4 1.0-5.5 #) [facility] AND [id number] 20:06:00 Test Item Value Reference Range Interpretation Comments UA RBC (test code = 0-2 /HPF See_Comment [Automa moriah message] The UA RBC) system which ge nerated this result tra nsmitted reference range : <=2. The reference range was not used to interpr et this result as valerio l/abnormal. [facility] AND [id number] 20:06:00 Test Item Value Reference Range Interpretation Comments UA Bacteria (test code = UA Few /HPF Bacteria) [facility] AND [id number] 20:06:00 Test Item Value Reference Range Interpretation Comments UA WBC (test code = UA WBC) 0-2 /HPF [facility] AND [id number] 20:06:00 Test Item Value Reference Range Interpretation Comments UA Mucus (test code = UA Mucus) Moderate /LPF [facility] AND [id number] 20:06:00 Test Item Value Reference Range Interpretation Comments UA Sperm (test code = UA Occasional /HPF Sperm) [facility] AND [id number] 20:06:00 Test Item Value Reference Range Interpretation Comments UA Urobilinogen (test code = UA 0.2 0.1-1.0 Urobilinogen) [facility] AND [id number] 20:06:00 Test Item Value Reference Range Interpretation Comments UA Leuk Est (test Negative (07/18/16 3:06 code = UA Leuk Est) PM) [facility] AND [id number] 20:06:00 Test Item Value Reference Range Interpretation Comments UA Nitrite (test code Negative (07/18/16 3:06 = UA Nitrite) PM) [facility] AND [id number] 20:06:00 Test Item Value Reference Range Interpretation Comments UA Blood (test code = Trace *ABN*(07/18/16 UA Blood) 3:06 PM) [facility] AND [id number] 20:06:00 Test Item Value Reference Range Interpretation Comments UA Bili (test code = Negative *NA*(07/18/16 UA Bili) 3:06 PM) [facility] AND [id number] 20:06:00 Test Item Value Reference Range Interpretation Comments UA Ketones (test code Negative *NA*(07/18/16 = UA Ketones) 3:06 PM) [facility] AND [id number] 20:06:00 Test Item Value Reference Range Interpretation Comments UA Sq Epi (test code = UA Sq Epi) Few /LPF [facility] AND [id number] 20:06:00 Test Item Value Reference Range Interpretation Comments UA Color (test code = Yellow *NA*(07/18/16 3:06 UA Color) PM) [facility] AND [id number] 20:06:00 Test Item Value Reference Range Interpretation Comments UA Turbidity (test code = Clear (07/18/16 3:06 UA Turbidity) PM) [facility] AND [id number] 20:06:00 Test Item Value Reference Range Interpretation Comments UA pH (test code = UA pH) 6.0 1 5.0-8.0 [facility] AND [id number] 20:06:00 Test Item Value Reference Range Interpretation Comments UA Spec Grav (test code = UA Spec 1.025 1 Grav) [facility] AND [id number] 20:06:00 Test Item Value Reference Range Interpretation Comments UA Glucose (test code Negative (07/18/16 3:06 = UA Glucose) PM) [facility] AND [id number] 20:06:00 Test Item Value Reference Range Interpretation Comments UA Bili (test code = Negative *NA*(07/18/16 UA Bili) 3:06 PM) [facility] AND [id number] 20:06:00 Test Item Value Reference Range Interpretation Comments UA Ketones (test code Negative *NA*(07/18/16 = UA Ketones) 3:06 PM) [facility] AND [id number] 20:06:00 Test Item Value Reference Range Interpretation Comments UA Sq Epi (test code = UA Sq Epi) Few /LPF [facility] AND [id number] 20:06:00 Test Item Value Reference Range Interpretation Comments UA Protein (test code Negative (07/18/16 3:06 = UA Protein) PM) [facility] AND [id number] 20:06:00 Test Item Value Reference Range Interpretation Comments UA Color (test code = Yellow *NA*(07/18/16 3:06 UA Color) PM) [facility] AND [id number] 20:06:00 Test Item Value Reference Range Interpretation Comments UA Turbidity (test code = Clear (07/18/16 3:06 UA Turbidity) PM) [facility] AND [id number] 20:06:00 Test Item Value Reference Range Interpretation Comments UA pH (test code = UA pH) 6.0 1 5.0-8.0 [facility] AND [id number] 20:06:00 Test Item Value Reference Range Interpretation Comments UA Spec Grav (test code = UA Spec 1.025 1 Grav) [facility] AND [id number] 20:06:00 Test Item Value Reference Range Interpretation Comments UA Glucose (test code Negative (07/18/16 3:06 = UA Glucose) PM) [facility] AND [id number] 20:06:00 Test Item Value Reference Range Interpretation Comments UA Protein (test code Negative (07/18/16 3:06 = UA Protein) PM) [facility]ztgpiiSWNBFDNSUTZI7687-13-09 20:06:00 Test Item Value Reference Range Interpretation Comments AGAP (test code = AGAP) 11.2 10.0-20.0 [facility] HospitalUkrzzmwRVAGUYGFVWEJ5986-36-21 20:06:00 Test Item Value Reference Range Interpretation Comments eGFR (test code = eGFR) 104 [facility]JsofjpfIPYNEICMZKSL0277-63-63 20:06:00 Test Item Value Reference Range Interpretation Comments CO2 (test code = CO2) 31 24-32 [facility]QzqckrhHDJSIPAAYYEE8106-59-54 20:06:00 Test Item Value Reference Range Interpretation Comments Creatinine Lvl (test code = Creatinine 0.95 0.50-1.40 Lvl) [facility]KfwlbfaOREZKKSTSYMT1578-86-00 20:06:00 Test Item Value Reference Range Interpretation Comments AGAP (test code = AGAP) 11.2 10.0-20.0 [facility]QenzxmdBIVRDAKFKQEQ4328-82-96 20:06:00 Test Item Value Reference Range Interpretation Comments Chloride Lvl (test code = Chloride Lvl) 107 95-109 [facility] HospitalNjrvgnaNLFEZCHPUEDL9966-19-41 20:06:00 Test Item Value Reference Range Interpretation Comments Potassium Lvl (test code = Potassium 4.2 3.5-5.1 Lvl) [facility] HospitalLeduiyrFFLUHXZRDLWW1168-59-21 20:06:00 Test Item Value Reference Range Interpretation Comments Sodium Lvl (test code = Sodium Lvl) 145 135-145 [facility]MuxjanfMFUDVRWKTWFD8200-69-33 20:06:00 Test Item Value Reference Range Interpretation Comments Calcium Lvl (test code = Calcium Lvl) 8.8 8.5-10.5 [facility] HospitalBywflgcWHGFJHHJALUB8227-86-12 20:06:00 Test Item Value Reference Range Interpretation Comments Glucose Lvl (test code = Glucose Lvl) 88 70-99 [facility] HospitalLcfnuggSEWELDIHTYLE3449-92-37 20:06:00 Test Item Value Reference Range Interpretation Comments BUN (test code = BUN) 21 7-22 [facility]fw[facility]myyZKEPLBCFND2690-54-21 20:06:00 Test Item Value Reference Range Interpretation Comments PTT (test code = PTT) 37.3 s 22.9-35.8 [facility] HospitalTmldyvgNIKDGCAVJE1650-00-15 20:06:00 Test Item Value Reference Range Interpretation Comments PT (test code = PT) 14.3 s 12.0-14.7 [facility] HospitalNeuuwmjIFNVVCTQIV2720-97-26 20:06:00 Test Item Value Reference Range Interpretation Comments INR (test code = INR) 1.08 0.85-1.17 [facility] HospitalNcpvnxyOBMBHOGFSW5999-43-61 20:06:00 Test Item Value Reference Range Interpretation Comments Sed Rate (test code = 19 See_Comment [Auto mated message] The Sed Rate) system which ge nerated this result transmit moriah reference range : <=15. The reference range was not used to interpr et this result as valerio l/abnormal. [facility]VkobplhPYMYNLJJPSNK6334-73-65 20:06:00 Test Item Value Reference Range Interpretation Comments eGFR (test code = eGFR) 104 [facility] HospitalStkqmjuRKBRRCYTJR4730-38-31 20:06:00 Test Item Value Reference Range Interpretation Comments MPV (test code = MPV) 7.8 7.4-10.4 [facility] HospitalZlyfrpqWZLYSZCOZL7492-54-41 20:06:00 Test Item Value Reference Range Interpretation Comments RDW (test code = RDW) 13.5 11.5-14.5 [facility] HospitalAdiutwvGBMJWZMXWD6004-02-79 20:06:00 Test Item Value Reference Range Interpretation Comments Platelet (test code = Platelet) 376 133-450 [facility] HospitalIhrrwchJGZIKDMNNQ9629-13-04 20:06:00 Test Item Value Reference Range Interpretation Comments MCHC (test code = MCHC) 31.5 32.0-36.0 [facility] HospitalPpxaioqXQVYLBQCXC9252-00-47 20:06:00 Test Item Value Reference Range Interpretation Comments MCH (test code = MCH) 27.2 pg 27.0-31.0 [facility] HospitalWwsbpxtHHTCFBVDMV8117-74-93 20:06:00 Test Item Value Reference Range Interpretation Comments Hct (test code = Hct) 44.6 42.0-54.0 [facility] HospitalHqnnccuKDZJBBELYF9982-49-79 20:06:00 Test Item Value Reference Range Interpretation Comments Hgb (test code = Hgb) 14.1 14.0-18.0 [facility] HospitalDibplzfIDLYEMEIZF9440-13-39 20:06:00 Test Item Value Reference Range Interpretation Comments MCV (test code = MCV) 86.4 80.0-94.0 [facility]EwljzowQBMWWMSYMP0333-73-98 20:06:00 Test Item Value Reference Range Interpretation Comments RBC (test code = RBC) 5.16 4.70-6.10 [facility] HospitalGzjrrucZHEGOMGBHW5432-63-47 20:06:00 Test Item Value Reference Range Interpretation Comments WBC (test code = WBC) 7.6 3.7-10.4 [facility]YfrkahiQPCANUBWIQNC0522-79-10 20:06:00 Test Item Value Reference Range Interpretation Comments CO2 (test code = CO2) 31 24-32 [facility] HospitalZkwaowxSRWWMTOYEB7895-34-33 20:06:00 Test Item Value Reference Range Interpretation Comments Basophils # (test code 0.0 See_Comment [Aut omated message] The = Basophils #) system which generated this result tra nsmitted reference range : <=0.2. The reference r artemio was not used to int erpret this result as normal/abnormal . [facility] HospitalYtykpskLUCJIYAQMK2804-95-44 20:06:00 Test Item Value Reference Range Interpretation Comments Eosinophils (test code = 3.5 See_Comment [A utomated message] The Eosinophils) system which ge nerated this result tra nsmitted reference range : <=4.0. The reference r artemio was not used to int erpret this result as normal/abnormal . [facility] HospitalRrttoohREQCAOMECZ6028-53-88 20:06:00 Test Item Value Reference Range Interpretation Comments Basophils (test code = 0.4 See_Comment [Aut omated message] The Basophils) system which ge nerated this result tra nsmitted reference range : <=1.0. The reference r artemio was not used to int erpret this result as normal/abnormal . [facility] HospitalLruqrcvXWSCXMCYVP7062-34-83 20:06:00 Test Item Value Reference Range Interpretation Comments Monocytes (test code = Monocytes) 6.6 2.0-12.0 [facility] HospitalZrqefybRUINJZAZCK2650-36-34 20:06:00 Test Item Value Reference Range Interpretation Comments Lymphocytes (test code = Lymphocytes) 31.1 20.0-40.0 [facility] HospitalPorsxuzGMMCDRHXAZ0750-72-30 20:06:00 Test Item Value Reference Range Interpretation Comments Segs (test code = Segs) 58.4 45.0-75.0 [facility]GjbkktuRSDJTDBOMF1525-08-72 20:06:00 Test Item Value Reference Range Interpretation Comments Eosinophils # (test code 0.3 See_Comment [A utomated message] The = Eosinophils #) system whic h generated this result tra nsmitted reference range : <=0.5. The reference r artemio was not used to int erpret this result as normal/abnormal . [facility] HospitalXqfbctiMNVVTLFXEN8407-42-51 20:06:00 Test Item Value Reference Range Interpretation Comments Monocytes # (test code 0.5 See_Comment [Aut omated message] The = Monocytes #) system which generated this result tra nsmitted reference range : <=0.8. The reference r artemio was not used to int erpret this result as normal/abnormal . [facility] HospitalUzlhpzlPCVMJWWCQQ6218-64-45 20:06:00 Test Item Value Reference Range Interpretation Comments Segs-Bands # (test code = Segs-Bands #) 4.5 1.5-8.1 [facility] HospitalBvtiuieGVFXOBMYPX0299-93-93 20:06:00 Test Item Value Reference Range Interpretation Comments Lymphocytes # (test code = Lymphocytes 2.4 1.0-5.5 #) [facility] SystemVwdaonsUQQCHVCXHZVJ6840-35-23 20:06:00 Test Item Value Reference Range Interpretation Comments Creatinine Lvl (test code = Creatinine 0.95 0.50-1.40 Lvl) [facility] AND [id number] 20:06:00 Test Item Value Reference Range Interpretation Comments UA RBC (test code = 0-2 /HPF See_Comment [Automa moriah message] The UA RBC) system which ge nerated this result tra nsmitted reference range : <=2. The reference range was not used to interpr et this result as valerio l/abnormal. [facility] [id number] 20:06:00 Test Item Value Reference Range Interpretation Comments UA Bacteria (test code = UA Few /HPF Bacteria) [facility] AND [id number] 20:06:00 Test Item Value Reference Range Interpretation Comments UA WBC (test code = UA WBC) 0-2 /HPF [facility] AND [id number] 20:06:00 Test Item Value Reference Range Interpretation Comments UA Mucus (test code = UA Mucus) Moderate /LPF [facility] AND [id number] 20:06:00 Test Item Value Reference Range Interpretation Comments UA Sperm (test code = UA Occasional /HPF Sperm) [facility] AND [id number] 20:06:00 Test Item Value Reference Range Interpretation Comments UA Urobilinogen (test code = UA 0.2 0.1-1.0 Urobilinogen) [facility] AND [id number] 20:06:00 Test Item Value Reference Range Interpretation Comments UA Leuk Est (test Negative (07/18/16 3:06 code = UA Leuk Est) PM) [facility] AND [id number] 20:06:00 Test Item Value Reference Range Interpretation Comments UA Nitrite (test code Negative (07/18/16 3:06 = UA Nitrite) PM) [facility] AND [id number] 20:06:00 Test Item Value Reference Range Interpretation Comments UA Blood (test code = Trace *ABN*(07/18/16 UA Blood) 3:06 PM) [facility]HlrvpmxKWZXQXGMEMVQ4018-23-66 20:06:00 Test Item Value Reference Range Interpretation Comments Chloride Lvl (test code = Chloride Lvl) 107 95-109 [facility] HospitalFjgwghkUWIUTICJELLI8790-19-91 20:06:00 Test Item Value Reference Range Interpretation Comments Potassium Lvl (test code = Potassium 4.2 3.5-5.1 Lvl) [facility] HospitalAczxafxROLBNMXDNEHV4728-41-85 20:06:00 Test Item Value Reference Range Interpretation Comments Sodium Lvl (test code = Sodium Lvl) 145 135-145 [facility] HospitalIsginlfMFMJJADZOXHF9340-19-95 20:06:00 Test Item Value Reference Range Interpretation Comments Calcium Lvl (test code = Calcium Lvl) 8.8 8.5-10.5 [facility] HospitalZeymarnXGLBQAQWWILN7370-67-45 20:06:00 Test Item Value Reference Range Interpretation Comments Glucose Lvl (test code = Glucose Lvl) 88 70-99 [facility] HospitalQlnhvrzIZVRIFATPWPD7316-16-40 20:06:00 Test Item Value Reference Range Interpretation Comments BUN (test code = BUN) 21 7-22 [facility]NktiuheEXMXYAWGCF4015-74-89 20:06:00 Test Item Value Reference Range Interpretation Comments PTT (test code = PTT) 37.3 s 22.9-35.8 [facility] HospitalFbcmilxOGHZFICSBZ0550-79-83 20:06:00 Test Item Value Reference Range Interpretation Comments PT (test code = PT) 14.3 s 12.0-14.7 [facility] HospitalQuzqyebMMXQWSPMVX3594-63-91 20:06:00 Test Item Value Reference Range Interpretation Comments INR (test code = INR) 1.08 0.85-1.17 [facility] HospitalOamlsrrLTFPSRWVON2218-39-93 20:06:00 Test Item Value Reference Range Interpretation Comments Sed Rate (test code = 19 See_Comment [Auto mated message] The Sed Rate) system which ge nerated this result transmit moriah reference range : <=15. The reference range was not used to interpr et this result as valerio l/abnormal. [facility] HospitalWpnzrniPUMXZZEBGQ9202-12-20 20:06:00 Test Item Value Reference Range Interpretation Comments MPV (test code = MPV) 7.8 7.4-10.4 [facility] HospitalGbvykqwCSALCQEDTT5043-34-91 20:06:00 Test Item Value Reference Range Interpretation Comments RDW (test code = RDW) 13.5 11.5-14.5 [facility] HospitalNumnyonRIWGJGTEZX2236-49-44 20:06:00 Test Item Value Reference Range Interpretation Comments Platelet (test code = Platelet) 376 133-450 [facility] HospitalIteguuuWQBBEMEIEU8246-47-17 20:06:00 Test Item Value Reference Range Interpretation Comments MCHC (test code = MCHC) 31.5 32.0-36.0 [facility] HospitalOpssbjjTYWAYPAXNZ9902-56-87 20:06:00 Test Item Value Reference Range Interpretation Comments MCH (test code = MCH) 27.2 pg 27.0-31.0 [facility] HospitalEmmvyugRWQEKOHYZZ7070-88-40 20:06:00 Test Item Value Reference Range Interpretation Comments Hct (test code = Hct) 44.6 42.0-54.0 [facility] HospitalVnglxhlAXAHOFWSES0807-18-62 20:06:00 Test Item Value Reference Range Interpretation Comments Hgb (test code = Hgb) 14.1 14.0-18.0 [facility] HospitalZmlkloaRPMNAIQTBX2085-45-67 20:06:00 Test Item Value Reference Range Interpretation Comments MCV (test code = MCV) 86.4 80.0-94.0 [facility] HospitalTevokvwWYKDJIKBSQ2362-20-59 20:06:00 Test Item Value Reference Range Interpretation Comments RBC (test code = RBC) 5.16 4.70-6.10 [facility] HospitalBuperocYQRVHNBDJL0571-64-90 20:06:00 Test Item Value Reference Range Interpretation Comments WBC (test code = WBC) 7.6 3.7-10.4 [facility] HospitalAlmtywzYIOHSGDTKI2820-98-56 20:06:00 Test Item Value Reference Range Interpretation Comments Basophils # (test code 0.0 See_Comment [Aut omated message] The = Basophils #) system which generated this result tra nsmitted reference range : <=0.2. The reference r artemio was not used to int erpret this result as normal/abnormal . [facility] HospitalRrxzaslJPTGPWCNTM5825-92-14 20:06:00 Test Item Value Reference Range Interpretation Comments Eosinophils (test code = 3.5 See_Comment [A utomated message] The Eosinophils) system which ge nerated this result tra nsmitted reference range : <=4.0. The reference r artemio was not used to int erpret this result as normal/abnormal . [facility] HospitalTfknsnlVFXREXZRBF6158-65-08 20:06:00 Test Item Value Reference Range Interpretation Comments Basophils (test code = 0.4 See_Comment [Aut omated message] The Basophils) system which ge nerated this result tra nsmitted reference range : <=1.0. The reference r artemio was not used to int erpret this result as normal/abnormal . [facility] HospitalArsetodSEMDKTJRIU9637-18-90 20:06:00 Test Item Value Reference Range Interpretation Comments Monocytes (test code = Monocytes) 6.6 2.0-12.0 [facility] HospitalGekrzslYMIRBYADSL6743-70-61 20:06:00 Test Item Value Reference Range Interpretation Comments Lymphocytes (test code = Lymphocytes) 31.1 20.0-40.0 [facility] HospitalTecysboKZUGMWTHOV4280-61-70 20:06:00 Test Item Value Reference Range Interpretation Comments Segs (test code = Segs) 58.4 45.0-75.0 [facility] HospitalFakjseeYQZRCYEYDI5298-36-19 20:06:00 Test Item Value Reference Range Interpretation Comments Eosinophils # (test code 0.3 See_Comment [A utomated message] The = Eosinophils #) system [facility] h generated this result tra nsmitted reference range : <=0.5. The reference r artemio was not used to int erpret this result as normal/abnormal . [facility] HospitalUrefgvuLDHFDTQQYG8478-25-96 20:06:00 Test Item Value Reference Range Interpretation Comments Monocytes # (test code 0.5 See_Comment [Aut omated message] The = Monocytes #) system which generated this result tra nsmitted reference range : <=0.8. The reference r artemio was not used to int erpret this result as normal/abnormal . [facility] HospitalBxodfnxSQBLOSXKAJ9082-18-31 20:06:00 Test Item Value Reference Range Interpretation Comments Segs-Bands # (test code = Segs-Bands #) 4.5 1.5-8.1 [facility] HospitalRjovnegXYODJRFCHZ1718-12-67 20:06:00 Test Item Value Reference Range Interpretation Comments Lymphocytes # (test code = Lymphocytes 2.4 1.0-5.5 #) [facility] AND [id number] 20:06:00 Test Item Value Reference Range Interpretation Comments UA RBC (test code = 0-2 /HPF See_Comment [Automa moriah message] The UA RBC) system which ge nerated this result tra nsmitted reference range : <=2. The reference range was not used to interpr et this result as valerio l/abnormal. [facility] AND [id number] 20:06:00 Test Item Value Reference Range Interpretation Comments UA Bacteria (test code = UA Few /HPF Bacteria) [facility] AND [id number] 20:06:00 Test Item Value Reference Range Interpretation Comments UA WBC (test code = UA WBC) 0-2 /HPF [facility] AND [id number] 20:06:00 Test Item Value Reference Range Interpretation Comments UA Mucus (test code = UA Mucus) Moderate /LPF [facility] AND [id number] 20:06:00 Test Item Value Reference Range Interpretation Comments UA Sperm (test code = UA Occasional /HPF Sperm) [facility] AND [id number] 20:06:00 Test Item Value Reference Range Interpretation Comments UA Urobilinogen (test code = UA 0.2 0.1-1.0 Urobilinogen) [facility] AND [id number] 20:06:00 Test Item Value Reference Range Interpretation Comments UA Leuk Est (test Negative (07/18/16 3:06 code = UA Leuk Est) PM) [facility] AND [id number] 20:06:00 Test Item Value Reference Range Interpretation Comments UA Nitrite (test code Negative (07/18/16 3:06 = UA Nitrite) PM) [facility] AND [id number] 20:06:00 Test Item Value Reference Range Interpretation Comments UA Blood (test code = Trace *ABN*(07/18/16 UA Blood) 3:06 PM) [facility] AND [id number] 20:06:00 Test Item Value Reference Range Interpretation Comments UA Bili (test code = Negative *NA*(07/18/16 UA Bili) 3:06 PM) [facility] AND [id number] 20:06:00 Test Item Value Reference Range Interpretation Comments UA Ketones (test code Negative *NA*(07/18/16 = UA Ketones) 3:06 PM) [facility] AND [id number] 20:06:00 Test Item Value Reference Range Interpretation Comments UA Sq Epi (test code = UA Sq Epi) Few /LPF [facility] AND [id number] 20:06:00 Test Item Value Reference Range Interpretation Comments UA Color (test code = Yellow *NA*(07/18/16 3:06 UA Color) PM) [facility] AND [id number] 20:06:00 Test Item Value Reference Range Interpretation Comments UA Turbidity (test code = Clear (07/18/16 3:06 UA Turbidity) PM) [facility] AND [id number] 20:06:00 Test Item Value Reference Range Interpretation Comments UA pH (test code = UA pH) 6.0 1 5.0-8.0 [facility] AND [id number] 20:06:00 Test Item Value Reference Range Interpretation Comments UA Spec Grav (test code = UA Spec 1.025 1 Grav) [facility] AND [id number] 20:06:00 Test Item Value Reference Range Interpretation Comments UA Glucose (test code Negative (07/18/16 3:06 = UA Glucose) PM) [facility] AND [id number] 20:06:00 Test Item Value Reference Range Interpretation Comments UA Protein (test code Negative (07/18/16 3:06 = UA Protein) PM) [facility]NhquuaxJYGSPXGEVEVB8081-05-79 20:06:00 Test Item Value Reference Range Interpretation Comments AGAP (test code = AGAP) 11.2 10.0-20.0 [facility] HospitalOgbswdnKEAWUXDKPTWX8488-22-23 20:06:00 Test Item Value Reference Range Interpretation Comments eGFR (test code = eGFR) 104 [facility] HospitalSyometrIKUVCPNGGLSZ4321-19-81 20:06:00 Test Item Value Reference Range Interpretation Comments CO2 (test code = CO2) 31 24-32 [facility] HospitalYwucpsaIQIPWUPYEOLE4955-34-99 20:06:00 Test Item Value Reference Range Interpretation Comments Creatinine Lvl (test code = Creatinine 0.95 0.50-1.40 Lvl) [facility] HospitalDcyxeemBDVIMFBBNNME3970-33-14 20:06:00 Test Item Value Reference Range Interpretation Comments Chloride Lvl (test code = Chloride Lvl) 107 95-109 [facility] HospitalCuvyexxACIRYHGTCGQJ7169-00-36 20:06:00 Test Item Value Reference Range Interpretation Comments Potassium Lvl (test code = Potassium 4.2 3.5-5.1 Lvl) [facility] HospitalDzdzzjbJDQZUICQOPCL5848-10-54 20:06:00 Test Item Value Reference Range Interpretation Comments Sodium Lvl (test code = Sodium Lvl) 145 135-145 [facility] HospitalJudzoqhDXGCDYYDTRUT4551-41-46 20:06:00 Test Item Value Reference Range Interpretation Comments Calcium Lvl (test code = Calcium Lvl) 8.8 8.5-10.5 [facility] HospitalAwpjiugHMGUPPXNVQFS5201-89-54 20:06:00 Test Item Value Reference Range Interpretation Comments Glucose Lvl (test code = Glucose Lvl) 88 70-99 [facility] HospitalMspfgrdVJRGVWEWSESP7346-28-66 20:06:00 Test Item Value Reference Range Interpretation Comments BUN (test code = BUN) 21 7-22 [facility] HospitalYarztgoQWBMAUYUNP9036-21-44 20:06:00 Test Item Value Reference Range Interpretation Comments PTT (test code = PTT) 37.3 s 22.9-35.8 [facility] HospitalPybcfulKJWKFYVQSE3385-70-41 20:06:00 Test Item Value Reference Range Interpretation Comments PT (test code = PT) 14.3 s 12.0-14.7 [facility]
[2022-12-31] MEDS ORDERED: ASPIRIN 81 MG CHEWABLE TABLET ONE (08:26)
--- NOTE | 2022-12-31 08:36 | RAD REPORT ---
EXAM DESCRIPTION: Hubertt Single View12/31/2022 8:24 am CLINICAL HISTORY: CHEST PAIN COMPARISON: Chest Single View dated 10/11/2018; Chest Pa And Lat (2 Views) dated 10/04/2018 TECHNIQUE: Portable AP view of the chest. FINDINGS: The lungs are clear. No pneumothorax or effusion. The cardiomediastinal contours are unrem arkable. IMPRESSION: No acute cardiopulmonary process.
[2022-12-31 09:00] LABS: Absolute Lymphocytes (CBC) 1.6 K/uL (0.7-4.9); Lymphocytes % 24.1 % (15.3-44.8); MCV 85.6 fL (80-100); MPV 7.1 fL (7.6-11.3); RBC Red Blood Cell Count 5.14 M/uL (4.33-5.43)
[2022-12-31 09:14] LABS: Albumin 4.2 g/dL (3.4-5.0); Bilirubin Total 0.5 mg/dL (0.2-1.0); Magnesium 2.4 mg/dL (1.6-2.4); Potassium 3.8 mmol/L (3.5-5.1); Troponin High Sensitivity 4.4 pg/mL (<58.9)
--- NOTE | 2022-12-31 12:29 | ER ---
Nurse's Notes Former[facility] Name: Sergei Walden Jr Age: 42 yrs Sex: Male : 1980 Arrival Date: 12/31/2022 Time: 07:57 Bed 8 Private MD: Diagnosis: Chest pain, unspecified Presentation: 12/31 08:08 Chief complaint: Patient states: he has been having chest pain and tightness since ap3 yesterday and isn't sure if it is related to stress, anxiety or something more. patient states the pain is located primarily in the middle of his chest, and does not radiate. Coronavirus screen: At this time, the client does not indicate any symptoms associated with coronavirus-19. Ebola Screen: No symptoms or risks identified at this time. Initial Sepsis Screen: Does the patient meet any 2 criteria? No. Patient's initial sepsis screen is negative. Does the patient have a suspected source of infection? No. Patient's initial sepsis screen is negative. Risk Assessment: Do you want to hurt yourself or someone else? Patient reports no desire to harm self or others. Onset of symptoms was December 30, 2022. 08:08 Method Of Arrival: Ambulatory ap3 08:08 Acuity: ARGENIS 2 ap3 Triage Assessment: 08:13 General: Appears in no apparent distress. Behavior is calm, cooperative. Pain: ap3 Complains of pain in anterior aspect of left upper chest and mid-sternal area Pain does not radiate. Pain currently is 4 out of 10 on a pain scale. Neuro: Level of Consciousness is awake, alert, obeys commands, Oriented to person, place, time, situation, Moves all extremities. Gait is steady, Speech is normal. Cardiovascular: Patient's skin is warm and dry. Respiratory: Airway is patent Respiratory effort is even, unlabored, Respiratory pattern is regular, symmetrical. Historical: - Allergies: 08:10 No Known Allergies; ap3 - Home Meds: 08:10 None [Active]; ap3 - PMHx: 08:10 None; ap3 - Immunization history:: Client reports having NOT received the Covid vaccine. Flu vaccine is not up to date. - Social history:: Smoking status: Patient denies any tobacco usage or history of. Screenin:14 [facility] ED Fall Risk Assessment (Adult) History of falling in the last 3 months, ap3 including since admission No falls in past 3 months (0 pts). Abuse screen: Denies threats or abuse. Nutritional screening: No deficits noted. Tuberculosis screening: No symptoms or risk factors identified. Assessment: 08:32 General:. ld1 08:32 General: Appears in no apparent distress. comfortable, Behavior is calm, cooperative, ld1 appropriate for age. Pain: Complains of pain in chest Pain does not radiate. Pain currently is 0 out of 10 on a pain scale. at worst was 8 out of 10 on a pain scale. Quality of pain is described as heavy, throbbing, Pain began 2 hours ago. Is episodic. Neuro: Level of Consciousness is awake, alert, obeys commands, Oriented to person, place, time, situation, Appropriate for age. Cardiovascular: Reports chest pain, Capillary refill < 3 seconds Rhythm is sinus rhythm Chest pain is described as Pain is 0 out of 10 on a pain scale. Respiratory: Airway is patent Respiratory effort is even, unlabored. GI: Abdomen is round non-distended. : No signs and/or symptoms were reported regarding the genitourinary system. EENT: No signs and/or symptoms were reported regarding the EENT system. Derm: Skin is clammy. Musculoskeletal: No signs and/or symptoms reported regarding the musculoskeletal system. 09:18 Reassessment: Patient appears in no apparent distress at this time. No changes from ld1 previously documented assessment. Patient and/or family updated on plan of care and expected duration. Pain level reassessed. 10:37 Reassessment: Patient appears in no apparent distress at this time. No changes from sg5 previously documented assessment. Patient and/or family updated on plan of care and expected duration. Pain level reassessed. Patient ambulated to the restroom and back without any recurring chest pain. 11:17 Reassessment: Patient appears in no apparent distress at this time. No changes from sg5 previously documented assessment. Patient and/or family updated on plan of care and expected duration. Pain level reassessed. Updated patient on next LAB Draw for 1145. 12:38 Reassessment: Patient appears in no apparent distress at this time. Patient and/or ph family updated on plan of care and expected duration. Pain level reassessed. Patient is alert, oriented x 3, equal unlabored respirations, skin warm/dry/pink. Vital Signs: 08:08 BP 134 / 98; Pulse 69; Resp 17; Temp 98.7; Pulse Ox 98% ; Weight 88.9 kg; Height 5 ft. ap3 3 in. (160.02 cm); Pain 4/10; 08:32 BP 134 / 99; Pulse 70; Resp 18; Pulse Ox 99% on R/A; Pain 0/10; ld1 09:18 BP 134 / 93; Pulse 67; Resp 18; Pulse Ox 100% on R/A; ld1 10:15 BP 119 / 85; Pulse 69; Resp 18; Pulse Ox 99% on R/A; ld1 11:17 BP 122 / 92; Pulse 64; Resp 16; Pulse Ox 98% on R/A; Pain 0/10; sg5 12:38 BP 118 / 89; Pulse 68; Resp 18; Temp 98.9; Pulse Ox 99% on R/A; ph 08:08 Body Mass Index 34.72 (88.90 kg, 160.02 cm) ap3 ED Course: 07:57 Patient arrived in ED. rg4 07:59 Sarahi Yañez FNP-C is PHCP. kb 07:59 Miguel Shankar MD is Attending Physician. kb 08:10 Triage completed. ap3 08:14 Arm band placed on right wrist. ap3 08:14 Patient maintains SpO2 saturation greater than 95% on room air. ap3 08:31 Chelsea Magaña, RN is Primary Nurse. sg5 08:31 Inserted saline lock: 18 gauge in right antecubital area, using aseptic technique. sg5 Blood collected. 08:32 Patient has correct armband on for positive identification. Placed in gown. Bed in low ld1 position. Call light in reach. Side rails up X2. car examiner on. Pulse ox on. NIBP on. 08:32 Door closed. Warm blanket given. Pillow given. ld1 08:32 No provider procedures requiring assistance completed. ld1 08:48 CBC with Diff Sent. sg5 08:48 D-Dimer Sent. sg5 08:48 Magnesium Sent. sg5 08:48 NT PRO-BNP Sent. sg5 08:48 Troponin HS Sent. sg5 12:38 IV discontinued, intact, bleeding controlled, No redness/swelling at site. Pressure ph dressing applied. Administered Medications: 08:29 Drug: Aspirin Chewable Tablet 324 mg Route: PO; kc6 12:39 Follow up: Response: No adverse reaction ph Medication: 08:32 VIS not applicable for this client. ld1 Outcome: 12:28 Discharge ordered by . wily 12:38 Discharged to home ambulatory. ph 12:38 Condition: good 12:38 Discharge instructions given to patient, Instructed on discharge instructions, follow up and referral plans. medication usage, Demonstrated understanding of instructions, follow-up care, medications, Prescriptions given X 1. 12:39 Patient left the ED. ph Signatures: Sarahi Yañez, TOPPER PRESS OPERATOR-C TOPPER PRESS OPERATOR-Meryl Cochran RN RN ph Pily Brush4 Mady Vargas RN RN ap3 Tamera Patterson RN RN ld1 Danielle Garcia RN RN kc6 Chelsea Magaña RN RN sg5 Corrections: (The following items were deleted from the chart) 08:13 08:10 Home Meds: Nexium 20 mg Oral cpDR 1 cap once daily; ap3 ap3
--- NOTE | 2022-12-31 12:29 | EDPHYS ---
Physician Documentation [facility] Name: Sergei Walden Jr Age: 42 yrs Sex: Male : 1980 Arrival Date: 12/31/2022 Time: 07:57 Bed 8 Private MD: ED Physician Miguel Shankar HPI: 12/31 08:24 This 42 yrs old Male presents to ER via Ambulatory with complaints of Chest kb Pain. 08:24 The patient or guardian reports chest pain that is located primarily in the chest kb diffusely. Onset: 2 week(s) ago, and became worse this morning. The pain does not radiate. Associated signs and symptoms: Pertinent positives: shortness of breath, Pertinent negatives: abdominal pain, diaphoresis, dizziness, headache, lower extremity pain, lower extremity swelling, lightheadedness, nausea, near syncope, palpitations, syncope, vomiting. The chest pain is described as tightness. Duration: The patient or guardian reports a single episode, that is still ongoing, but improving. Modifying factors: The symptoms are alleviated by nothing. the symptoms are aggravated by nothing. Severity of pain: At its worst the pain was moderate in the emergency department the pain has improved. The patient has not experienced similar symptoms in the past. The patient has not recently seen a physician. Historical: - Allergies: 08:10 No Known Allergies; ap3 - Home Meds: 08:10 None [Active]; ap3 - PMHx: 08:10 None; ap3 - Immunization history:: Client reports having NOT received the Covid vaccine. Flu vaccine is not up to date. - Social history:: Smoking status: Patient denies any tobacco usage or history of. ROS: 08:20 Constitutional: Negative for fever, chills, and weight loss. kb 08:20 Cardiovascular: Positive for chest pain, Negative for edema, orthopnea, palpitations, paroxysmal nocturnal dyspnea. 08:20 All other systems are negative. Exam: 08:20 Constitutional: This is a well developed, well nourished patient who is awake, alert, kb and in no acute distress. Head/Face: Normocephalic, atraumatic. ENT: Moist Mucous membranes Cardiovascular: Regular rate and rhythm with a normal S1 and S2. No gallops, murmurs, or rubs. No pulse deficits. Respiratory: Respirations even and unlabored. No increased work of breathing. Talking in full sentences Abdomen/GI: Soft, non-tender. No distention Skin: Warm, dry with normal turgor. Normal color. MS/ Extremity: Pulses equal, no cyanosis. Neurovascular intact. Full, normal range of motion. Neuro: Awake and alert, GCS 15, oriented to person, place, time, and situation. Moves all extremities. Normal gait. 08:32 ECG was reviewed by the Attending Physician. kb Vital Signs: 08:08 BP 134 / 98; Pulse 69; Resp 17; Temp 98.7; Pulse Ox 98% ; Weight 88.9 kg; Height 5 ft. ap3 3 in. (160.02 cm); Pain 4/10; 08:32 BP 134 / 99; Pulse 70; Resp 18; Pulse Ox 99% on R/A; Pain 0/10; ld1 09:18 BP 134 / 93; Pulse 67; Resp 18; Pulse Ox 100% on R/A; ld1 10:15 BP 119 / 85; Pulse 69; Resp 18; Pulse Ox 99% on R/A; ld1 11:17 BP 122 / 92; Pulse 64; Resp 16; Pulse Ox 98% on R/A; Pain 0/10; sg5 12:38 BP 118 / 89; Pulse 68; Resp 18; Temp 98.9; Pulse Ox 99% on R/A; ph 08:08 Body Mass Index 34.72 (88.90 kg, 160.02 cm) ap3 MDM: 08:13 Patient medically screened. kb 08:17 Data reviewed: vital signs, nurses notes. ED course: Patient is a 42-year-old male with kb no known medical history who presents for chest tightness that has been ongoing intermittently for a couple of weeks and was a little worse this morning starting around 6 AM. Pain is eased up since onset at 6 AM, but still present. Patient reports shortness of breath that has been ongoing since being sick 2 weeks ago. Patient denies dizziness, nausea, vomiting, headache, abdominal pain, fever. States "I think it might be stress or anxiety or something." Differential diagnosis include PE, pneumonia, [place], abnormal EKG, CAD, stress, anxiety. Cardiac work-up, including serum labs, EKG and chest x-ray ordered.. 08:20 The patient was given aspirin in the Emergency Department. kb 09:09 Test considered but Not performed: CT: CT chest to rule out PE considered but D-dimer kb within normal limits and PERC score 0.. 09:09 Scoring Tools PERC Rule for PE Age >/= 50 No HR >/= 100 No O2 Sat Room Air < 95% No kb Unilateral leg swelling No Hemoptysis No Recent surgery or trauma </= 4 wks ago requiring treatment with general anesthesia No (0 pt) Prior PE or DVT No Hormone use (Oral contraceptives, hormone replacement or estrogenic hormones use in males or female patients No. 10:27 ED course: Serum labs, chest x-ray and EKG reviewed. Will repeat troponin at 3 hours kb post first draw. . 12:28 Counseling: I had a detailed discussion with the patient and/or guardian regarding: the kb historical points, exam findings, and any diagnostic results supporting the discharge/admit diagnosis, lab results, radiology results, the need for outpatient follow up, a family practitioner, to return to the emergency department if symptoms worsen or persist or if there are any questions or concerns that arise at home. 12/31 08:14 Order name: CBC with Diff kb 12/31 08:14 Order name: D-Dimer 12/31 08:14 Order name: Magnesium kb 12/31 08:14 Order name: NT PRO-BNP 12/31 08:14 Order name: Troponin HS 12/31 08:14 Order name: CMP kb 12/31 09:01 Order name: CBC with Automated Diff; Complete Time: 09:01 EDMS 12/31 09:06 Order name: D-Dimer; Complete Time: 09:09 EDMS 12/31 09:14 Order name: Comprehensive Metabolic Panel; Complete Time: 09:19 EDMS 12/31 09:14 Order name: Troponin High Sensitivity; Complete Time: 09:19 EDMS 12/31 09:14 Order name: NT PRO-BNP; Complete Time: 09:19 EDMS 12/31 09:14 Order name: Magnesium; Complete Time: 09:19 EDMS 12/31 11:06 Order name: Troponin High Sensitivity: to be collected at 1145 sg5 12/31 08:14 Order name: XRAY Chest (1 view) kb 12/31 08:14 Order name: EKG; Complete Time: 08:15 kb 12/31 08:14 Order name: Cardiac monitoring; Complete Time: 08:21 kb 12/31 08:14 Order name: EKG - Nurse/Tech; Complete Time: 08:31 kb 12/31 08:14 Order name: IV Saline Lock; Complete Time: 08:31 kb 12/31 08:14 Order name: Labs collected and sent; Complete Time: 08:48 kb 12/31 08:14 Order name: O2 Per Protocol; Complete Time: 08:21 kb 12/31 08:14 Order name: O2 Sat Monitoring; Complete Time: 08:21 kb 12/31 08:37 Order name: RAD; Complete Time: 08:37 EDMS 12/31 12:18 Order name: Troponin High Sensitivity; Complete Time: 12:28 EDMS EC:32 Rate is 66 beats/min. Rhythm is regular. QRS [place] is Normal. [place] interval is prolonged kb at 204 msec. QRS interval is normal at 98 msec. QT interval is normal at 413 msec. Administered Medications: 08:29 Drug: Aspirin Chewable Tablet 324 mg Route: PO; kc6 12:39 Follow up: Response: No adverse reaction ph Disposition: 18:58 Co-signature as Attending Physician, Miguel Shankar MD. bs3 Disposition Summary: 12/31/22 12:28 Discharge Ordered Location: Home kb Condition: Stable kb Diagnosis - Chest pain, unspecified kb Followup: kb - With: Emergency Department - When: As needed - Reason: Worsening of condition Followup: kb - With: Private Physician - When: 2 - 3 days - Reason: Recheck today's complaints, Continuance of care, Re-evaluation by your physician Discharge Instructions: - Discharge Summary Sheet kb - Nonspecific Chest Pain, Adult, [id number] kb - Generalized Anxiety Disorder, Adult kb - Managing Anxiety, Adult kb Forms: - Medication Reconciliation Form kb - Thank You Letter kb - Antibiotic Education kb - Prescription Opioid Use kb - Work release form ph Prescriptions: - Hydroxyzine HCl 25 mg Oral Tablet - take 1 tablet by ORAL route every 8 hours As needed; 12 tablet; Refills: 0, kb Product Selection Permitted Signatures: Dispatcher [employer] EDMS Sarahi Yañez FNP-C FNP-Ckb Prokisch, Amanda RN RN ap3 Danielle Garcia RN RN kc6 Miguel Shankar MD MD bs3 Meryl Pelaez RN ph Corrections: (The following items were deleted from the chart) 08:13 08:10 Home Meds: Nexium 20 mg Oral cpDR 1 cap once daily; ap3 ap3 09:10 09:09 Test considered but Not performed: CT: CT chest to rule out PE considered but kb D-dimer within normal limits.. kb 11:05 10:39 Troponin High Sensitivity+[id number].LAB.BRZ ordered. EDMS EDMS
[2022-12-31 13:12] VITALS: BP 118/89; TEMP 98.9; O2SAT 99
--- NOTE | 2023-01-01 11:54 | EKG ---
Test Date: 2022-12-31 Test Time: 08:30:40 Labor Mediator: EARL MEASUREMENT RESULTS: Intervals: Rate: 66 IN: 204 QRSD: 98 QT: 394 QTc: 413 [place]: P: 51 IN: 204 QRS: 56 T: 34 INTERPRETIVE STATEMENTS: Normal sinus rhythm Normal ECG Compared to ECG 10/11/2018 15:18:57 ST (T wave) deviation no longer present Electronically Signed On 01-01-23 11:51:49 HARNESS REPAIRER by Kevin Dove
== END 2022-12-31 12:39 | disposition home or self-care (01) ==
LOC: ER 07:52
DX: R07.89 Other chest pain (principal); R06.02 Shortness of breath
CPT/HCPCS: 36415; 71045; 80053; 83735; 83880; 84484; 85025; 85379; 93005

== ENCOUNTER 2023-10-27 08:22 | Emergency (ER) | payer BC ==
[2023-10-27 08:44] LABS: Absolute Lymphocytes (CBC) 2.1 K/uL (0.7-4.9); Hematocrit 47.1 % (39.6-49.0); Lymphocytes % 29.7 % (15.3-44.8); MCV 85.8 fL (80-100); MPV 7.2 fL (7.6-11.3); Platelets 378 thou/uL (152-406); RBC Red Blood Cell Count 5.49 M/uL (4.33-5.43)
--- NOTE | 2023-10-27 08:54 | RAD REPORT ---
EXAM DESCRIPTION: RAD - Chest Single View - 10/27/2023 8:46 am CLINICAL HISTORY: CHEST PAIN Chest pain. COMPARISON: Chest Single View dated 12/31/2022; Chest Single View dated 10/11/2018; Chest Pa And Lat (2 Views) dated 10/04/2018 FINDINGS: Portable technique limits examination quality. The lungs are grossly clear. The heart is normal in size. No displaced fractures. IMPRESSION: No acute intrathoracic process suspected.
[2023-10-27 09:14] LABS: Magnesium 2.3 mg/dL (1.6-2.4); Potassium 3.6 mEq/L (3.5-5.1); Troponin High Sensitivity 5.2 pg/mL (<58.9)
--- NOTE | 2023-10-27 11:27 | EDPHYS ---
Physician Documentation [facility] Name: Sergei Walden Jr Age: 43 yrs Sex: Male : 1980 Arrival Date: 10/27/2023 Time: 08:22 Bed 3 Private MD: ED Physician Roger Abdi HPI: 10/27 08:31 This 43 yrs old Male presents to ER via Ambulatory with complaints of Chest ms3 Tightness, Numbness Of Arm. 08:31 43-year-old male with no past medical history presents to the emergency department for ms3 chest discomfort that began at 630. Patient states the pain is located in his midsternal region and rated 2/10. Patient notes the pain did radiate to his left arm. Patient denies nausea, vomiting, shortness of breath, diaphoresis. Patient denies any alleviating or inciting factors.. Historical: - Allergies: 08:32 No Known Allergies; hb - Home Meds: 08:32 Nexium 20 mg Oral cpDR 1 cap once daily [Active]; hb - PMHx: 08:32 None; hb - PSHx: 08:32 None; hb - Immunization history:: Adult Immunizations up to date. - Social history:: Smoking status: Patient denies any tobacco usage or history of. Patient/guardian denies using alcohol. ROS: 08:31 Constitutional: Negative for fever, and chills. Neck: Negative for injury, pain, and ms3 swelling, 08:31 Respiratory: Negative for shortness of breath, cough, wheezing, and pleuritic chest pain, Abdomen/GI: Negative for abdominal pain, nausea, vomiting, diarrhea, and constipation, MS/Extremity: Negative for injury and deformity, Skin: Negative for injury, rash, and discoloration, 08:31 Cardiovascular: Positive for chest pain, 08:31 All other systems are negative, Exam: 08:31 Constitutional: This is a well developed, well nourished patient who is awake, alert, ms3 and in no acute distress. Head/Face: Normocephalic, atraumatic. Chest/axilla: Normal chest wall appearance and motion. Nontender with no deformity. Cardiovascular: Regular rate and rhythm with a normal S1 and S2. No gallops, murmurs, or rubs. Normal PMI, no JVD. No pulse deficits. Respiratory: Lungs have equal breath sounds bilaterally, clear to auscultation and percussion. No rales, rhonchi or wheezes noted. No increased work of breathing, no retractions or nasal flaring. Abdomen/GI: Soft, non-tender, with normal bowel sounds. No distension or tympany. No guarding or rebound. No evidence of tenderness throughout. Skin: Warm, dry with normal turgor. Normal color with no rashes, no lesions, and no evidence of cellulitis. MS/ Extremity: Pulses equal, no cyanosis. Neurovascular intact. Full, normal range of motion. 08:55 ECG was reviewed by the Attending Physician. ms3 Vital Signs: 08:31 BP 161 / 107; Pulse 74; Resp 16; Temp 98.2; Pulse Ox 100% on R/A; Weight 81.65 kg; hb Height 5 ft. 2 in. ; Pain 3/10; 08:36 BP 161 / 107; Pulse 86; Resp 15; Pulse Ox 98% on R/A; Pain 4/10; ld1 09:25 BP 129 / 98; Pulse 67; Resp 16; Pulse Ox 97% on R/A; ld1 10:39 BP 127 / 100; Pulse 64; Resp 16; Pulse Ox 99% on R/A; ld1 11:18 BP 126 / 97; Pulse 70; Resp 17; Pulse Ox 100% on R/A; ld1 08:31 Body Mass Index 32.92 (81.65 kg, 157.48 cm) hb 08:31 Pain Scale: Adult hb 08:36 Pain Scale: Adult ld1 MDM: 08:31 Patient medically screened. ms3 08:31 Differential diagnosis: abnormal EKG, acute myocardial infarction, chest wall pain, ms3 pneumonia. 11:26 HEART Score: History: Moderately Suspicious (1), ECG: Normal (0), Age: < or = 45 years ms3 (0), Risk Factors: No Risk Factors Known (0), Troponin: < or = 1 x Normal Limit (0), Total Score = 1. The patient was given aspirin in the Emergency Department. Data reviewed: vital signs, nurses notes, lab test result(s), EKG, radiologic studies, and as a result, I will discharge patient. Consideration of Admission/Observation Escalation of care including admission/observation considered. Troponin negative, Heart score 1. I considered the following discharge prescriptions or medication management in the emergency department Medications were administered in the Emergency Department. See MAR. Independent interpretation of the following test(s) in the Emergency Department EKG: See my EKG interpretation above X-Ray: My interpretation is CXR images reviewed did not reveal PNA. Counseling: I had a detailed discussion with the patient and/or guardian regarding the historical points, exam findings, and any diagnostic results supporting the discharge/admit diagnosis, lab results, radiology results, the need for outpatient follow up, to return to the emergency department if symptoms worsen or persist or if there are any questions or concerns that arise at home. Special discussion: Based on the patient's history, exam, and Dx evaluation, there is no indication for emergent intervention or inpatient Tx. It is understood by the patient/guardian that if the Sx's persist or worsen they need to return immediately for re-evaluation. I have referred the patient to see his PCP for further evaluation of high blood pressure. ED course: Discussed lab work to include negative troponin, chest x-ray, EKG with patient. Patient understands and agrees with plan. Patient to follow-up with Dr. Dove in 1 to 2 days. Patient understands and agrees with plan. All questions were answered. Return precautions discussed include worsening symptoms, or any other concerns. On reevaluation patient is alert and oriented x 4, no apparent distress, nontoxic-appearing, ambulatory emergency primary, speaking full sentences. 12 08:31 Order name: Basic Metabolic Panel; Complete Time: 09:41 ms3 10/27 08:31 Order name: CBC with Diff; Complete Time: 08:56 ms3 10/27 08:31 Order name: Magnesium; Complete Time: 09:41 ms3 10/27 08:31 Order name: Troponin HS; Complete Time: 09:41 ms3 12 09:42 Order name: Troponin High Sensitivity: For 1040 AM; Complete Time: 11:25 ms3 10/27 08:31 Order name: XRAY Chest (1 view); Complete Time: 08:56 ms3 10/27 08:31 Order name: EKG; Complete Time: 08:32 ms3 10/27 08:31 Order name: Cardiac monitoring; Complete Time: 08:35 ms3 10/27 08:31 Order name: EKG - Nurse/Tech; Complete Time: 08:35 ms3 10/27 08:31 Order name: IV Saline Lock; Complete Time: 08:35 ms3 10/27 08:31 Order name: Labs collected and sent; Complete Time: 08:35 ms3 10/27 08:31 Order name: O2 Per Protocol; Complete Time: 08:35 ms3 10/27 08:31 Order name: O2 Sat Monitoring; Complete Time: 08:35 ms3 10/27 09:42 Order name: Repeat Cardiac Enzymes at: Repeat at 1040; Complete Time: 10:49 ms3 EC:55 Rate is 71 beats/min. Rhythm is regular. QRS [place] is Normal. [place] interval is normal. QRS ms3 interval is normal. Clinical impression: Normal ECG. Interpreted by me. Reviewed by me. Administered Medications: 08:38 Drug: Aspirin PO Chewable Tablet 324 mg PO once; 81 mg tablets x 4 Route: PO; ld1 Disposition Summary: 10/27/23 11:26 Discharge Ordered Notes: Location: Home ms3 Condition: Stable ms3 Diagnosis - Chest pain, unspecified ms3 - Elevated blood-pressure reading, without diagnosis of hypertension ms3 Followup: ms3 - With: Kevin Dove MD - When: 1 - 2 days - Reason: Recheck today's complaints Discharge Instructions: - Discharge Summary Sheet ms3 - Nonspecific Chest Pain, Adult ms3 - DASH Eating Plan ms3 Forms: - Medication Reconciliation Form ms3 - Thank You Letter ms3 - Antibiotic Education ms3 - Prescription Opioid Use ms3 - Patient Portal Instructions ms3 - Leadership Thank You Letter ms3 Signatures: Dispatcher [employer] Margarita oDn RN Roger Ureña DO DO ms3 Tamera Abdi RN RN ld1
--- NOTE | 2023-10-27 11:27 | ER ---
Nurse's Notes [facility] Name: Sergei Walden Jr Age: 43 yrs Sex: Male : 1980 Arrival Date: 10/27/2023 Time: 08:22 Bed 3 Private MD: Diagnosis: Chest pain, unspecified;Elevated blood-pressure reading, without diagnosis of hypertension Presentation: 10/27 08:30 Chief complaint: Intermittent midsternal chest pain that radiates to left arm that hb started while sitting in meeting at 0630 today. Also reports mild dizziness at onset of chest pain. Denies nausea/SOB. Coronavirus screen: At this time, the client does not indicate any symptoms associated with coronavirus-19. Ebola Screen: No symptoms or risks identified at this time. 08:30 Method Of Arrival: Ambulatory 08:31 Initial Sepsis Screen: Does the patient meet any 2 criteria? No. Patient's initial hb sepsis screen is negative. Does the patient have a suspected source of infection? No. Patient's initial sepsis screen is negative. Risk Assessment: Do you want to hurt yourself or someone else? Patient reports no desire to harm self or others. Onset of symptoms was October 27, 2023 at 06:30. 08:31 Acuity: ARGENIS 3 hb Historical: - Allergies: 08:32 No Known Allergies; hb - Home Meds: 08:32 Nexium 20 mg Oral cpDR 1 cap once daily [Active]; hb - PMHx: 08:32 None; hb - PSHx: 08:32 None; hb - Immunization history:: Adult Immunizations up to date. - Social history:: Smoking status: Patient denies any tobacco usage or history of. Patient/guardian denies using alcohol. Screenin:36 [facility] ED Fall Risk Assessment (Adult) History of falling in the last 3 months, ld1 including since admission No falls in past 3 months (0 pts). Abuse screen: Denies threats or abuse. Denies injuries from another. Nutritional screening: No deficits noted. Tuberculosis screening: No symptoms or risk factors identified. Assessment: 08:36 General: Appears in no apparent distress. comfortable, Behavior is calm, cooperative, ld1 appropriate for age. Pain: Complains of pain in chest Pain does not radiate. Pain currently is 4 out of 10 on a pain scale. Quality of pain is described as throbbing, Pain began 3 hours ago. Is continuous. Neuro: Level of Consciousness is awake, alert, obeys commands, Oriented to person, place, time, situation. Neuro: Reports numbness in left arm. Cardiovascular: Capillary refill < 3 seconds Patient's skin is warm and dry. Rhythm is sinus rhythm. Cardiovascular: Reports chest pain. Respiratory: Airway is patent Respiratory effort is even, unlabored. GI: Abdomen is round non-distended. : No signs and/or symptoms were reported regarding the genitourinary system. EENT: No signs and/or symptoms were reported regarding the EENT system. Derm: No signs and/or symptoms reported regarding the dermatologic system. Musculoskeletal: No signs and/or symptoms reported regarding the musculoskeletal system. Vital Signs: 08:31 BP 161 / 107; Pulse 74; Resp 16; Temp 98.2; Pulse Ox 100% on R/A; Weight 81.65 kg; hb Height 5 ft. 2 in. ; Pain 3/10; 08:36 BP 161 / 107; Pulse 86; Resp 15; Pulse Ox 98% on R/A; Pain 4/10; ld1 09:25 BP 129 / 98; Pulse 67; Resp 16; Pulse Ox 97% on R/A; ld1 10:39 BP 127 / 100; Pulse 64; Resp 16; Pulse Ox 99% on R/A; ld1 11:18 BP 126 / 97; Pulse 70; Resp 17; Pulse Ox 100% on R/A; ld1 08:31 Body Mass Index 32.92 (81.65 kg, 157.48 cm) hb 08:31 Pain Scale: Adult hb 08:36 Pain Scale: Adult ld1 ED Course: 08:23 Patient arrived in ED. rg4 08:27 Roger Abdi DO is Attending Physician. ms3 08:31 Triage completed. hb 08:32 Arm band placed on. hb 08:35 Tamera Abdi, RN is Primary Nurse. ld1 08:36 Patient has correct armband on for positive identification. Placed in gown. Bed in low ld1 position. Call light in reach. Side rails up X2. clinical research monitor on. Pulse ox on. NIBP on. Door closed. Noise minimized. Warm blanket given. 08:36 No provider procedures requiring assistance completed. Inserted saline lock: 20 gauge ld1 in right antecubital area, using aseptic technique. Blood collected. Patient maintains SpO2 saturation greater than 95% on room air. 08:48 XRAY Chest (1 view) In Process Unspecified. EDMS 10:49 Troponin High Sensitivity: For 1040 AM Sent. ld1 11:26 Kevin Dove MD is Referral Physician. ms3 11:30 IV discontinued, intact, bleeding controlled, No redness/swelling at site. ld1 Administered Medications: 08:38 Drug: Aspirin PO Chewable Tablet 324 mg PO once; 81 mg tablets x 4 Route: PO; ld1 Medication: 08:36 VIS not applicable for this client. ld1 Outcome: 11:26 Discharge ordered by . ms3 11:30 Discharged to home ambulatory, with family, ld1 11:30 Condition: stable 11:30 Discharge instructions given to patient, Instructed on discharge instructions, follow up and referral plans. Demonstrated understanding of instructions, follow-up care, 11:31 Patient left the ED. ld1 Signatures: Dispatcher [employer] EDMS Margarita Morel RN RN Pily Mac rg4 Roger Abdi, DO ms3 Tamera Abdi RN RN ld1
[2023-10-27 11:39] VITALS: TEMP 98.2
[2023-10-27 11:44] VITALS: BP 126/97; O2SAT 100
--- NOTE | 2023-10-28 13:07 | EKG ---
Test Date: 2023-10-27 Test Time: 08:31:15 Sofa Cover Inspector: KENISHA MEASUREMENT RESULTS: Intervals: Rate: 71 MS: 202 QRSD: 96 QT: 382 QTc: 415 [place]: P: 54 MS: 202 QRS: 57 T: 47 INTERPRETIVE STATEMENTS: Normal sinus rhythm Normal ECG Compared to ECG 12/31/2022 08:30:40 No significant changes Electronically Signed On 10-28-23 13:04:31 ACTIVE DIRECTORY SPECIALIST by Kevin Dove
== END 2023-10-27 11:31 | disposition home or self-care (01) ==
LOC: ER 08:22
DX: R07.89 Other chest pain (principal); R03.0 Elevated blood-pressure reading, without diagnosis of hypertension
CPT/HCPCS: 36415; 71045; 80048; 83735; 84484; 85025; 93005; 99285